=== PATIENT | male | born 1935 | race Caucasian/White ===

== ENCOUNTER 2024-01-28 08:29 | Outpatient (CLI) | payer MEDICARE, SELFPAY ==
[2024-01-28 09:15] LABS: Add Urine Microscopic? NO; Appearance Urine Clear (Clear); Bilirubin Urine Negative (Negative); Blood Urine Negative (Negative); Color Urine Yellow (Yellow); Glucose Urine UA 3+ mg/dL (Negative); Ketones Urine Negative (Negative); Leukocyte Esterase Ur Negative LEU/UL (Negative); Nitrate Urine Negative (Negative); Protein Urine Negative (Negative); Specific Grav Ur 1.024 (1.001-1.035); Urobilinogen Urine 0.2 mg/dL (<2.0); pH Urine 5.5 (5.0-9.0)
[2024-01-28 09:52] LABS: Hematocrit 37.5 % (42.0-52.0); Hemoglobin 11.7 g/dL (14.0-18.0); Mean Corpuscular HGB Conc 31.2 g/dl (32-36); Mean Corpuscular Hemoglobin 28.7 pg (26-34); Mean Corpuscular Volume 92.1 fl (80-100); Mean Platelet Volume 11.1 fl (7.4-10.4); Platelet Count Result 161 k/mm3 (150-375); Red Blood Count 4.07 M/mm3 (4.6-6.20); Red Cell Distribution Width 13.1 % (11.5-14.5); White Blood Count 7.9 K/mm3 (4.5-10.0)
[2024-01-28 10:03] LABS: Albumin Level 4.3 g/dL (3.5-5.1); Anion Gap 10 mmol/L (4-12); Blood Urea Nitrogen 32 mg/dL (9-20); Calcium 9.6 mg/dL (8.4-10.2); Carbon Dioxide 25 mmol/L (22-30); Chloride 105 mmol/L (98-107); Estimated Glomerular Filt Rate 41; Glucose 165 mg/dL (65-110); Magnesium 1.8 mg/dL (1.6-2.3); Potassium 4.4 mmol/L (3.4-5.0); Sodium 140 mmol/L (137-145)
[2024-01-28 10:30] LABS: MALB Creatinine Ratio 12.8 mg/g (0-30); Microalbumin Urine Random 8.6 mg/L (0-16.7)
[2024-01-28 10:38] LABS: Creatinine Urine 67.4 mg/dL; Total Protein Urine Random 13 mg/dL; Ur Ttl Prot Creatinine Ratio 0.19 mg/mg (0-0.20)
[2024-01-28 10:43] LABS: Vitamin D 25 Hydroxy 58.4 ng/mL
[2024-01-28 10:47] LABS: Parathyroid Intact 66.1 pg/mL (14.5-75.2)
[2024-01-28 11:20] LABS: Hemoglobin A1C 8.4 % (<5.7)
== END 2024-01-28 08:30 | disposition home or self-care (01) ==
LOC: ANHLAB 08:32
PROVIDERS: PCP Internal Medicine; Visit Provider Internal Medicine Nephrology
DX: I12.9 Hypertensive chronic kidney disease with stage 1 through stage 4 chronic kidney disease, or unspecified chronic kidney disease (principal); N18.32 Chronic kidney disease, stage 3b; E11.22 Type 2 diabetes mellitus with diabetic chronic kidney disease; I25.84 Coronary atherosclerosis due to calcified coronary lesion; I48.0 Paroxysmal atrial fibrillation; E78.00 Pure hypercholesterolemia, unspecified; K21.9 Gastro-esophageal reflux disease without esophagitis
CPT/HCPCS: 36415; 80069; 81003; 82043; 82306; 82570; 83036; 83735; 83970; 84156; 85027

== ENCOUNTER 2024-06-02 08:20 | Outpatient (CLI) | payer MEDICARE, SELFPAY ==
--- OUTSIDE RECORDS SUMMARY | 2024-06-02 08:34 | XMS_ITS | Continuity of Care Document ---
Author Organization [facility] Address [address] [facility] [address] [place] [address] Phone Care Team Providers Care Refrigeration Systems Installer Name Role Phone Og BONILLA MD, Alex Unavailable Unavailable Procedures Procedure Date AFTER CATARACT LASER SURGERY CATARACT SURG W/IOL, 1 STAGE CATARACT SURG W/IOL, 1 STAGE OFFICE/OUTPATIENT VISIT, [facility] DILATED EXAM RIGHT EYE DILATED EXAM LEFT EYE OPHTHALMIC BIOMETRY Advance Directives Directive Yes / No Effective Date File Name No Information Encounters Encounter Description Practice Location Reason(s) For Visit Diagnoses Date Provider Providers Copied on Encounter Ophthalmology [facility], [address], [place], [place], [id number], tel:[phone] [address] [place] [address] No Information 6 Og Johnson. [address], [address], [place], [place], [address] , [place]. tel:[phone] Referring Provider: Alex So, [address], [place], [address] . tel:[phone] Ophthalmology [facility], [address], [place], [place], [address], tel:[phone] [address] [place] [address] No Information 5 Og Johnson. [address], [address], [place], [place], [address] , [place]. tel:[phone] Referring Provider: Alex So, [address], [place], [address] . tel:[phone] [facility], [address] [place] [address], [id number], tel:[phone] [address] [facility] No Information 5 Og Johnson. [address], [address], [place], [place], [address] , . [phone] Referring Provider: Alex Foley MD P, [address], [place], [address] . tel:[phone] OFFICE/OUTPA TIENT VISIT, [facility], [address] [place] [address], [place], [place], [id number], tel:[phone] [facility] No Information 5 Og Johnson. [address], [place], [place], [address] , [place]. [phone] Referring Provider: Alex Foley MD P, [address], [place], [address] . tel:[phone] Family History Family Member Type Diagnosis Age At Onset No Information Payers Payer name Insurance type Covered republican ID Authoriza tion(s) Medicare Complete Advantage AARP CI [id number] Social History Type Description Quantity Date Captured [...]
--- OUTSIDE RECORDS SUMMARY | 2024-06-02 08:34 | XMS_ITS | Data Portability ---
Author Organization [facility] [employer], Main Office Address [address] [place] [address] Care Team Providers Care Property Utilization Manager Name Role Phone SAVANNA URRUTIA Primary Care Provider SAVANNA URRUTIA Referring Provider [phone] Assessment No assessment recorded. Plan of Treatment Reminders Order Date Submit Date Provider Last Modified By Organization Details Last Modified Time Details Appointments Any 15 2024 08:30A Franko Urrutia MD Not available Not available Not available Medicare Wellness 15 2024 10:15A Franko Urrutia MD Not available Not available Not available Lab vitamin B12, serum 2024 025 [email or web address] [facility], [address], [place], [address], 04/02/2024 09:14:35 TSH, serum or plasma 2024 025 [email or web address] [facility], [address], [place], [address], 04/02/2024 09:14:36 CBC w/ auto diff 2024 025 [email or web address] [facility], [address], [place], [address], 04/02/2024 09:14:36 vitamin B12 + folate, serum or blood 2024 025 BEAU [facility], [address], [place], [address], 03/26/2024 18:05:14 CMP, serum or plasma 2024 025 [email or web address] [facility], [address] , [place], [address], 04/02/2024 09:14:36 RPR (rapid plasma reagin), serum 2024 025 [email or web address] Not available 04/02/2024 09:14:36 glycohemo globin, total, blood 2023 024 [facility] (Lab), [address] [place], [address], 11/23/2023 07:17:06 BMP, serum or plasma 2023 024 [facility] (Lab), [address] [place], [address], 11/21/2023 19:59:05 Referral None recorded. Procedures None recorded. Surgeries None recorded. Imaging CT, brain, w/o contrast - Please call patient to schedule. 2024 025 [facility], [address], [place], [address], 03/25/2024 19:32:42 Medication Orders donepezil 5 mg tablet 2024 025 [facility] #[id number], [address], [place], [place], [id number], 03/24/2024 10:07:16 Farxiga 10 mg tablet 2023 024 [id number], [address], [place], [place], [id number], 12/12/2023 10:44:13 Patient TargetsNo targets recorded. Patient InstructionsNo instructions recorded. Reason for Referral None Reported. Results Created Date Observation Date Name Description Value Unit Range Abnormal Flag Note LastModifiedBy Organization Detail LastModifiedTime 11/21/19 24 11/21/2023 BASIC METAB OLIC PANEL sodium 137 mmol/ L 137-14 5 Not Available [facility] (Lab) [address] [place], [address], 11/21/2023 19:59:05 11/21/19 24 11/21/2023 BASIC METAB OLIC PANEL potassium 4.4 mmol/ L 3.5-5. 1 Not Available [facility] (Lab) [address] [place], [address], 11/21/2023 19:59:05 11/21/19 24 11/21/2023 BASIC METAB OLIC PANEL chloride 102 mmol/ L 98-107 Not Available [facility] (Lab) [address] [place], [address], 11/21/2023 19:59:05 11/21/19 24 11/21/2023 BASIC METAB OLIC PANEL carbon dioxide 25 mmol/ L 22-30 Not Available [facility] (Lab) [address] [place], [address], 11/21/2023 19:59:05 11/21/19 24 11/21/2023 BASIC METAB OLIC PANEL anion gap 14.4 mmol/ L 14-22 Not Available [facility] (Lab) [address] [place], [address], 11/21/2023 19:59:05 11/21/19 24 11/21/2023 BASIC METAB OLIC PANEL glucose 146 mg/dL 70-99 high Not Available [facility] (Lab) [address] [place], [address], 11/21/2023 19:59:05 11/21/19 24 11/21/2023 BASIC METAB OLIC PANEL BUN 22 mg/dL 8-19 high Not Available [facility] (Lab) [address] [place], [address], 11/21/2023 19:59:05 11/21/19 24 11/21/2023 BASIC METAB OLIC PANEL creatinine 1.45 mg/dL 0.66-1 .25 high Not Available [facility] (Lab) [address] [place], [address], 11/21/2023 19:59:05 11/21/19 24 11/21/2023 BASIC METAB OLIC PANEL GFR 46 Refer ence Range : [place] GFR Healt hy Adult : >60 mL/mi n/1.7 3 m2 Chron ic Kidne y Disea se: 15-60 mL/mi n/1.7 3 m2 Kidne y Failu re: <15/m L/min /1.73 m2 www.n iddk. [facility].g ov The MDRD study equat ion has not been valid ated in child lamar <18 years of age; pregn ant women ; the elder ly >85 years of age; or in some racia l or ethni c subgr oups, such as Hispa nics. Outsi de the valid ated jovanna eters , estim ated GFR is less accur ate, requi ring clini jaimie judgm ent on a case- by-ca se basis . Clini jaimie inter preta tion for other races and ages must be made by the clini jose carlos. The MDRD study equat ion has not been valid ated for the evalu ation of serum creat inine relat ed to nutri rex l statu s or medic ation usage . For perso ns <18 years of age, a pedia tric GFR calcu lator is avail able on the F websi te: https ://ww w.kid [place].o rg/pr ofess ional s/kdo qi/gf r_cal culat or Not Available [facility] (Lab) [address] [place], [address], 11/21/2023 19:59:05 11/21/19 24 11/21/2023 BASIC METAB OLIC PANEL calcium 9.0 mg/dL 8.4-10 .2 Not Available [facility] (Lab) [address] [place], [address], 11/21/2023 19:59:05 11/21/19 24 11/23/2023 HA1C, SEND- OUT TO [facility] RP hemoglobin A1C 7.7 % 4.8-5. 6 high . . Predi abete s: 5.7 - 6.4 Diabe rashel: >6.4 Glyce belle contr ol for adult s with diabe rashel: <7.0 Perfo rmed at: - [facility] r[facility] n [address], [place] [address] Lab Direc tor: Ramos mooney PhD, Phone : [phone] Not Available [facility] (Lab) [address] [place], [address], 11/23/2023 07:13:28 03/25/19 25 01/18/2024 CT, brain , w/o contr ast No observ ation record ed. [facility] [address], [place], [address], 03/25/2024 19:32:42 Result Notes None recorded. Problems Name Problem SNOMED Code Status Onset Date Resolution Date Notes Provider Name and Address Organization Details Recorded Time Cobalamin deficienc y 648239312 Active Not Available [facility] 4 04:45:43 Abdominal pain 50254376 Completed Savanna Urrutia MD [address], [address], [place], [address] , [facility] [employer] 3 11:14:02 Gastroeso phageal reflux disease 524914936 Active Not Available [facility] 4 04:45:43 Osteoarth ritis of hip 801426469 Active Not Available [facility] 4 04:45:43 Osteoarth ritis of knee 172034299 Active Not Available [facility] 4 04:45:43 Headache 07715955 Active 2016 Not Available [facility] 4 04:45:43 Gastroeso phageal reflux disease without esophagit is 469263502 Completed 202112/06/2021 Not Available [facility] 3 06:00:02 Adult health examinati on Active 2020 Not Available [facility] 4 04:45:43 Eruption 623662199 Completed 202112/06/2021 Not Available [facility] 3 06:00:03 Type 2 diabetes mellitus without complicat ion 497070965 Active 2021 Not Available [facility] 4 04:45:43 Vitamin D deficienc y 35761162 Active Not Available [facility] 4 04:45:43 Malignant neoplasm of skin 496728505 Active 2017 Not Available [facility] 4 04:45:43 Hypertens maricruz disorder 42005228 Active 2021 Not Available [facility] 4 04:45:43 Osteoarth ritis 841718620 Active Not Available [facility] 4 04:45:43 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 Not Available [facility] 4 04:45:43 Dysphagia 71667713 Active 2020 Not Available [facility] 4 04:45:43 Coronary atheroscl erosis 551729161 Active Not Available [facility] 4 04:45:43 Pain of bilateral knee regions 63389332838 4102 Completed 202112/06/2021 Not Available [facility] 3 06:00:04 Atrial fibrillat ion 03358334 Active 2017 Not Available [facility] 4 04:45:43 Sinus bradycard ia 17996929 Active 2020 Not Available [facility] 4 04:45:43 Cough 81680871 Completed 202112/06/2021 Not Available [facility] 3 06:00:04 Hyperlipi demia 16059967 Active Not Available [facility] 4 04:45:43 Essential hypertens ion 85305130 Active Not Available [facility] 4 04:45:43 Diabetes mellitus 33063523 Active Not Available [facility] 4 04:45:43 Vitamin deficienc y 38346003 Completed Not Available [facility] 3 06:00:05 Kidney disease 63387609 Active 2016 Not Available [facility] 4 04:45:43 Skin lesion 26141681 Completed 201608/09/2017 Not Available [facility] 3 06:00:06 Abdominal pain 15060395 Active 2022 Not Available [facility] 4 04:45:43 Syncope 374124350 Active 2023 Savanna Urrutia MD [address], [address], [place], [address] , [facility] 4 11:37:54 Dry skin dermatiti s 597566660 Active 2023 Savanna Urrutia MD [address], [address], [place], [address] , [facility] 4 11:38:17 Abnormal weight 63630316 Active 2023 NINO Hart null, [place] - [facility] 4 08:49:00 Sinusitis 56419477 Active 2023 Clari Cox MA null, [place] - [facility] 4 15:55:21 Symptomat ic sinus bradycard ia 947979534 Active 2023 Savanna Urrutia MD [address], [address], [place], [address] , [facility] 4 09:31:07 Memory impairmen t 177769565 Active 2023 Savanna Urrutia MD [address], [address], [place], [address] , [facility] 4 09:32:28 Dementia 08928218 Active 2024 Savanna Urrutia MD [address], [address], [place], [address] , [email or web address] 5 10:04:24 Sick sinus syndrome 26792358 Active 2024 Savanna Urrutia MD [address], [place], [address] , [email or web address] 5 10:21:02 Problem Notes None recorded. Procedures Surgical History Date Name Laterality Status Provider Name and Address Organization Details Recorded Time 08/08/19 24 Medicare Wellness CPT Code, subsequent completed Latha Ford RN [facility] 08/08/2023 10:43:52 08/05/19 23 Medicare Wellness CPT Code, subsequent completed Aliyah Monroe RN [facility] 08/04/2022 11:37:11 CABG completed Not Available [facility] 05/03/2022 05:53:40 Cholecystectomy completed Not Available [facility] 05/03/2022 05:53:40 Cardiac Stent Placement completed Not Available [facility] 05/03/2022 05:53:40 Imaging Results Imaging Date Name Status LastModified by Organiz ation Details LastModified Time 01/18/2024 CT, brain, w/o contrast completed [facility] [address] [facility] [facility] [address] [place] [address], [address], 03/25/2024 19:32:42 Procedure Notes None recorded. Medical Equipment None Reported. Allergies Allergen ID Allergen Name Allergen Category Reaction Reaction Severity Criticality Documentation Date Start Date Code Code System Note Provider Name and Address Organization Details Recorded Time 35537 metformin medicatio n Not available Not available Not available 05/03/2022 6809 RxNorm kidne y disea se Not Available [facility] 06:11:15 Medications Name Sig Start Date Stop Date Status Note LastModified by Organization Details LastModified Time losartan 50 mg tablet Take 1 tablet every day by oral route for 90 days. 11/30 completed Not Available Not Available Not Available metformin 500 mg tablet Take 2 tablets twice a day by oral route for 90 days. active Not Available Not Available No t Available carvedilo l 25 mg tablet TAKE 1 TABLET BY MOUTH TWICE DAILY 2024 active Not Available Not Available Not Avai lable carvedilo l 6.25 mg tablet active Not Available Not Available Not Available carvedilo l 12.5 mg tablet Take 1 tablet every day by oral route for 30 days. active Not Available Not Available No t Available donepezil 5 mg tablet Take 1 tablet every day by oral route. 2024 active Not Available Not Available Not Avai lable azithromy jeremi 250 mg tablet TAKE 2 TABLETS (500 MG) BY ORAL ROUTE ONCE DAILY FOR 1 DAY THEN 1 TABLET (250 MG) BY ORAL ROUTE ONCE DAILY FOR 4 DAYS 05/27 completed Not Available Not Available Not Available benzonata te 200 mg capsule TAKE 1 CAPSULE BY MOUTH THREE TIMES DAILY FOR 7 DAYS 08/04 completed Not Available Not Available Not Available glyburide 2.5 mg tablet Take 1 tablet twice a day by oral route. active Not Available Not Available No t Available cephalexi n 250 mg capsule TAKE ONE CAPSULE BY MOUTH THREE TIMES DAILY 05/27 completed Not Available Not Available Not Available glipizide ER 10 mg tablet, extended release 24 hr TAKE 1 TABLET BY MOUTH TWICE DAILY active Not Available Not Available No t Available fluoroura cil 5 % topical cream 08/04 completed Not Available Not Available Not Available glipizide ER 5 mg tablet, extended release 24 hr TAKE 1 AND 1/2 TABLETS TWICE DAILY 12/09 completed Not Available Not Available Not Available Accu-Chek Softclix Lancets TEST BLOOD SUGAR TWICE DAILY DIRECTED active Not Available Not Available No t Available clopidogr el 75 mg tablet TK 1 T PO QD 03/17 completed Not Available Not Available Not Available chlorthal idone 25 mg tablet 11/30 completed Not Available Not Available Not Available amlodipin e 5 mg tablet active Not Available Not Available Not Available aspirin 81 mg tablet,de layed release Take 1 tablet every day by oral route. 08/09 completed Not Available Not Available Not Available tramadol 50 mg tablet Take 1 tablet twice a day by oral route as needed. 2023 active Not Available Not Available Not Avai lable triamcino lone acetonide 0.1 % topical cream APPLY A THIN LAYER TO THE AFFECTED AREA(S) BY TOPICAL ROUTE 2 TIMES PER DAY 2023 active Not Available Not Available Not Avai lable simvastat in 40 mg tablet TAKE 1 TABLET BY MOUTH DAILY active Not Available Not Available No t Available oxycodone -acetamin ophen 5 mg-325 mg tablet 07/27 completed Not Available Not Available Not Available amitripty line 25 mg tablet Take 1 tablet every day by oral route at bedtime for 30 days. 08/12 completed Not Available Not Available Not Available magnesium oxide 400 mg (241.3 mg magnesium ) tablet active Not Available Not Available Not Available Kenalog 10 mg/mL suspensio n for injection In office injectio n administ ered by the provider 12/07 completed [facility]: [id number] 06-22 Not Available Not Available Not Available glipizide ER 2.5 mg tablet, extended release 24 hr TAKE ONE TABLET TWICE DAILY . 12/13 completed Not Available Not Available Not Available cephalexi n 500 mg capsule 04/05 completed Not Available Not Available Not Available pantopraz ole 40 mg tablet,de layed release TAKE 1 TABLET BY MOUTH DAILY active Not Available Not Available No t Available erythromy jeremi 5 mg/gram (0.5 %) eye ointment APPLY A THIN LAYER TO LOWER LID OF RIGHT EYE TWICE DAILY active Not Available Not Available No t Available cyanocoba judy (vit B-12) 1,000 mcg/mL injection solution Inject 1 mL every month by intramus cular route. 12/13 completed Internal note: [facility] #[id number] ternal note: [facility]# [id number] 25 Not Available Not Available Not Available ranitidin e 150 mg tablet TAKE ONE TABLET TWICE DAILY 03/16 completed Not Available Not Available Not Available desonide 0.05 % lotion active Not Available Not Available Not Available ranitidin e 150 mg capsule Take 1 capsule twice a day by oral route for 90 days. active Not Available Not Available No t Available mupirocin 2 % topical ointment active Not Available Not Available Not Available ergocalci ferol (vitamin D2) 1,250 mcg (50,000 unit) capsule TAKE 1 CAPSULE BY MOUTH 1 TIME A WEEK active Not Available Not Available No t Available losartan 100 mg tablet TAKE 1 TABLET BY MOUTH DAILY active Not Available Not Available No t Available calcitrio l 0.25 mcg capsule TAKE 1 CAPSULE BY MOUTH EVERY DAY active Not Available Not Available No t Available loratadin e 10 mg tablet Take 1 tablet every day by oral route as directed for 30 days. 05/11 /2021 completed Not Available Not Available Not Available neomycin 3.5 mg/g-poly myxin B 10,000 unit/g-de xameth 0.1 % eye oint APPLY A SMALL AMOUNT TO AFFECTED EYE AT BEDTIME active Not Available Not Available No t Available Vitamin D 50,000 unit capsule Take 1 capsule every week by oral route. 12/13 completed Not Available Not Available Not Available topiramat e 50 mg tablet Take 1 tablet twice a day by oral route for 30 days. active Not Available Not Available No t Available lidocaine (PF) 5 mg/mL (0.5 %) injection solution In office injectio n administ ered by the provider 12/07 completed Not Available Not Available Not Available ProAir HFA 90 mcg/actua tion aerosol inhaler Inhale 2 puffs every 4-6 hours by inhalati on route as directed for 30 days. 04/05 completed Not Available Not Available Not Available Januvia 50 mg tablet Take 1 tablet every day by oral route. 04/14 completed Not Available Not Available Not Available Januvia 100 mg tablet TAKE 1 TABLET BY MOUTH DAILY 04/14 completed Not Available Not Available Not Available Besivance 0.6 % eye drops,stone pension active Not Available Not Available Not Available Accu-Chek Softclix Lancing Device+La ncets kit TEST TWICE DAILY 09/10 completed Not Available Not Available Not Available magnesium 400 mg (as magnesium oxide) capsule Take 1 capsule twice a day by oral route. active Nepholog y Not Available Not Available Not Available Ilevro 0.3 % eye drops,stone pension active Not Available Not Available Not Available Lotemax 0.5 % eye gel drops active Not Available Not Available No t Available Eliquis 2.5 mg tablet TAKE 1 TABLET BY MOUTH TWICE DAILY active Not Available Not Available No t Available Farxiga 10 mg tablet TAKE 1 TABLET BY MOUTH EVERY DAY active Not Available Not Available No t Available Arnuity Ellipta 100 mcg/actua tion powder for inhalatio n Inhale 1 puff every day by inhalati on route as directed for 30 days. active Not Available Not Available No t Available Vitamin B12 1000u daily 2017 active Not Available Not Available Not Avai lable Accu-Chek Guide test strips TEST BLOOD SUGAR TWICE DAILY active Not Available Not Available No t Available Ozempic 0.25 mg or 0.5 mg (2 mg/1.5 mL) subcutane ous pen injector INJECT 0.25 MG UNDER THE SKIN EVERY WEEK 12/25 completed Not Available Not Available Not Available Accu-Chek Guide Me Glucose Meter USE TO TEST BLOOD SUGAR TWICE DAILY DIRECTED active Not Available Not Available No t Available Fluzone Quad (PF) 60 mcg (15 mcg x 4)/0.5 mL IM syringe active Not Available Not Available Not Available Fluad Quad (65yr up)(PF) 60 mcg (15 mcg x 4)/0.5mL IM syringe ADMINIST ER 0.5ML IN THE MUSCLE DIRECTED 01/26 completed Not Available Not Available Not Available Ozempic 1 mg/dose (4 mg/3 mL) subcutane ous pen injector Inject 1 mg every week by subcutan eous route. 12/11 completed Not Available Not Available Not Available Ozempic 0.25 mg or 0.5 mg (2 mg/3 mL) subcutane ous pen injector INJECT 0.5 MG UNDER THE SKIN EVERY WEEK 12/11 completed Not Available Not Available Not Available Vitals Date Recorded Body height Body mass index (BMI) Body weight Body temperature Heart rate Oxygen saturation Oxygen saturation in Arterial blood by Pulse oximetry Systolic blood pressure Diastolic blood pressure Provider Name and Address Organization Details Last Updated DateTime 4 165.1 cm 26 kg/m2 72605.4 1 g 97.1 [degF] 61 /min 95 % 95 % 124 mm[Hg] 76 mm[Hg] NINO Whitaker [place] - [facility] [employer] [facility] 4 08:51:15 Date Recorded Body weight Body mass index (BMI) Body height Body temperature Heart rate Oxygen saturation Oxygen saturation in Arterial blood by Pulse oximetry Systolic blood pressure Diastolic blood pressure Provider Name and Address Organization Details Last Updated DateTime 4 90931.2 2 g 30.1 kg/m2 152.4 cm 97.3 [degF] 50 /min 98 % 98 % 132 mm[Hg] 68 mm[Hg] Marcelina brown [place] [employer] [email or web address] 4 12:50:06 Date Recorded Body height Body mass index (BMI) Body weight Body temperature Heart rate Respiratory rate Oxygen saturation Oxygen saturation in Arterial blood by Pulse oximetry Systolic blood pressure Diastolic blood pressure Provider Name and Address Organization Details Last Updated DateTime 4 152.4 cm 28.5 kg/m2 49856.4 9 g 97.2 [degF] 65 /min 16 /min 96 % 96 % 160 mm[Hg] 72 mm[Hg] Clari Cox MA [facility] [employer] [facility] 4 09:05:58 Date Recorded Body height Body mass index (BMI) Body weight Body temperature Heart rate Oxygen saturation Oxygen saturation in Arterial blood by Pulse oximetry Systolic blood pressure Diastolic blood pressure Provider Name and Address Organization Details Last Updated DateTime 5 152.4 cm 29.7 kg/m2 72634.0 4 g 97.4 [degF] 65 /min 98 % 98 % 122 mm[Hg] 58 mm[Hg] Marcelina brown [facility] [email or web address] [facility] 5 09:41:19 Date Recorded Body weight Body mass index (BMI) Body height Body temperature Heart rate Oxygen saturation Oxygen saturation in Arterial blood by Pulse oximetry Systolic blood pressure Diastolic blood pressure Provider Name and Address Organization Details Last Updated DateTime 5 53668.4 5 g 25.9 kg/m2 162.56 cm 97.1 [degF] 72 /min 96 % 96 % 126 mm[Hg] 60 mm[Hg] Marcelina brown [email or web address] 5 09:56:20 Social History Question Answer Notes LastModified by Organizat ion Details LastModified Time Tobacco Smoking Status Never Smoker Not Available [facility] 05/03/2022 05:52:54 Do You Have An Advance Directive? Yes [id number] Information not available 05/03/2022 What Is Your Level Of Alcohol Consumption? None [id number] Information not available 05/03/2022 Are You Blind Or Do You Have Difficulty Seeing? No [id number] Information not available 05/03/2022 What Is Your Level Of Caffeine Consumption? Moderate [id number] [id number] Information not available 05/03/2022 How Much Tobacco Do You Chew? None [id number] Information not available 05/03/2022 Are You Deaf Or Do You Have Serious Difficulty Hearing? Yes Tinnitus [id number] Information not available 05/03/2022 What Type Of Diet Are You Following? REGULAR [id number] [id number] Information not available 05/03/2022 Which Illicit Or Recreational Drugs Have You Used? None [id number] [id number] Information not available 05/03/2022 What Is Your Occupation? Retired [id number].52975 [id number] Information not available 05/03/2022 Have There Been Any Changes To Your Family Or Social Situation? No [email or web address] Information not available 08/04/2022 What Is The Fluoride Status Of Your Home? Fluoridated [id number].39933 [id number] Information not available 05/03/2022 Are There Any Guns Present In Your Home? No [email or web address] Information not available 08/08/2023 Where Do You Live? [place]House [id number].[id number] Information not available 05/03/2022 Presence Of Domestic Violence No [email or web address] Information not available 08/04/2022 Guns Present In The Home? No Information not available 08/08/2023 Are You Able To Care For Yourself? Yes [email or web address] Information not available 08/04/2022 Are You Blind Or Do Yo Have Difficulty Seeing? No Glasses Information not available 08/04/2022 Are You Deaf Or Do You Have Serious Difficulty Hearing? Yes Tinnitus Information not available 08/04/2022 General Stress Level? Low [email or web address] Information not available 08/04/2022 Live Alone Of With Others? With Others [email or web address] Information not available 08/04/2022 What Was The Date Of Your Most Recent Tobacco Screening? 08/08/2023 [email or web address] Information not available 08/08/2023 Do You Have Any Pets? No [email or web address] Information not available 08/08/2023 What Is Your Relationship Status? [id number] Information not available 05/03/2022 Do You Use Your Seat Belt Or Car Seat Routinely? Yes MIGRATION.[id number] Information not available 05/03/2022 Do You Have Smoke And Carbon Monoxide Detectors In Your Home? Yes MIGRATION.11751 [id number] Information not available 05/03/2022 Are You Passively Exposed To Smoke? No [email or web address] Information not available 08/08/2023 Are There Any Smokers In Your House? No [email or web address] Information not available 08/08/2023 Do You Use Sunscreen Routinely? No MIGRATION.[id number] Information not available 05/03/2022 Sex: Male Functional Status Question Answer Note LastModified by Organizat ion Details LastModified Time Do you have difficulty walking or climbing stairs? Yes uses a cane [email or web address] Information not available 08/08/2023 Do you have transportation difficulties? No MIGRATION.[id number] Information not available 05/03/2022 Are you able to walk? YESASSIST MIGRATION.781889 9901 Information not available 05/03/2022 Do you have difficulty doing errands alone? No MIGRATION.[id number] Information not available 05/03/2022 Are you able to care for yourself? Yes MIGRATION.243560 7532 Information not available 05/03/2022 Do you have difficulty dressing or bathing? No MIGRATION.805425 0662 Information not available 05/03/2022 What is your exercise level? None MIGRATION.186626 0297 Information not available 05/03/2022 Mental Status Question Answer Note LastModified by Organizat ion Details LastModified Time Do you have difficulty concentrating, remembering or making decisions? No MIGRATION.[id number] Information not available 05/03/2022 Family History Relationship Description Onset Age of this Age Resolved Age Notes LastModified by Organization Details LastModified Time Father Pulmonary emphysema 72 [id number] Not available 05/03/2022 05:53:40 Mother Hypertensive disorder 82 [id number] Not available 05/03/2022 05:53:40 Mother Carcinoma in situ of skin MIGRATION.743 [id number] Not available 05/03/2022 05:53:41 Medical History Condition Response BLINDNESS N KIDNEY STONES N MRSA N CARPAL TUNNEL SYNDROME N LUNG DISEASE/DISORDER N HISTORY OF DRUG ABUSE N RADIATION / CHEMOTHERAPY N COPD N SPORTS INJURY N ANKLE PAIN N BLOOD DISEASES N SCHIZOPHRENIA N SHINGLES N BOWEL PROBLEMS N SHOULDER PAIN N DEPRESSION (INCLUDING POST ) N STROKE/TIA N KNEE PAIN N ULCERS N BENIGN PROSTATIC HYPERPLASIA N OBESITY N GERD/NAUSEA N ANEURYSM N URINARY/BLADDER/KIDNEY PROBLEMS N CORONARY ARTERY DISEASE (CAD) N ADDICTION CONCERNS N USE OF BLOOD THINNERS Y SKIN PROBLEMS Y EMPHYSEMA N MUSCLE,JOINT OR BONE PROBLEMS N DVT N STOMACH ULCERS N BLOOD CLOTS N USE OF NSAIDS N CONCUSSION OR SPINAL TRAUMA N NEUROPATHY N AIDS/HIV N FRACTURES N ELBOW PAIN N HYPERTENSION Y TOURETTE'S N ANXIETY DISORDER N Metal allergy N BLOOD TRANSFUSION N ANEMIA/BLOOD DISORDER N BIPOLAR DISORDER N BRONCHITIS N OSTEOARTHRITIS N TUBERCULOSIS N FOOT PROBLEM N HEART VALVE DISORDERS N ALLERGIES/HAYFEVER N SOFT TISSUE INJURY N INFECTIOUS DISEASE N HEART ARRHYTHMIA Y INSOMNIA N RHEUMATOID ARTHRITIS N HIGH CHOLESTEROL / HYPERLIPIDEMIA N EDEMA N CHRONIC PAIN SYNDROME N CAROTID BLOCKAGE N BACK / NECK PROBLEMS N HAVE YOU BEEN HOSPITALIZED OR SEEN IN [facility] ER IN THE PAST YEAR ? N BURSITIS N HERNIATED DISC N DIALYSIS N FIBROMYALGIA N OSTEOPOROSIS N ARTHRITIS Y NO SIGNIFICANT PAST MEDICAL HISTORY N PERIPHERAL NEUROPATHY N DIABETES, TYPE Y HEARTBURN / REFLUX N HEPATITIS / LIVER DISEASE N GOUT N SLEEP DISORDER N ALZHEIMER'S DISEASE N HERPES N SEIZURES/EPILEPSY N HEADACHES/MIGRAINES N VASCULAR DISEASE N HIP PAIN N Blood Disorder N DIZZINESS N HEAD TRAUMA OR INJURY N HEART DISEASE/HEART PROBLEMS N MULTIPLE SCLEROSIS N CARDIAC ARRHYTHMIA N CANCER: SPECIFY N ANESTHESIA COMPLICATIONS N ATRIAL FIBRILLATION N AUTOIMMUNE DISEASE N Immunizations Vaccine Type Date Status Note Provider Nam e and Address Organization Details Recorded Time Influenza, high-dose, quadrivalent, PF 3 completed Savanna Urrutia MD [address] [place] [address], [id number], [facility] [employer] 12/04/2022 11:12:10 COVID-19, mRNA, LNP-S, PF, 30 mcg/0.3 mL dose 1 completed Not Available [facility] 03/24/2023 04:45:44 SARS-COV-2 (COVID-19) vaccine, UNSPECIFIED 1 completed Not Available [facility] 03/24/2023 04:45:44 SARS-COV-2 (COVID-19) vaccine, UNSPECIFIED 1 completed Not Available [facility] 03/24/2023 04:45:44 Influenza, split virus, quadrivalent, preservative 0 completed Not Available [facility] 03/24/2023 04:45:44 Influenza, split virus, quadrivalent, preservative 9 completed Not Available [facility] 03/24/2023 04:45:44 Influenza, split virus, quadrivalent, preservative 9 completed Not Available [facility] 03/24/2023 04:45:44 Influenza, high-dose, quadrivalent, PF 2 completed Not Available [facility] 03/24/2023 04:45:44 Influenza, high-dose, trivalent, PF 8 completed Not Available [facility] 03/24/2023 04:45:44 Influenza, split virus, quadrivalent, PF 7 completed Not Available [facility] 03/24/2023 04:45:44 Pneumococcal conjugate PCV 13 6 completed Not Available [facility] 03/24/2023 04:45:44 Influenza, split virus, quadrivalent, PF 6 completed Not Available [facility] 03/24/2023 04:45:44 Influenza, high-dose, trivalent, PF 4 completed Savanna Urrutia MD [address] [place] [address], [place], [address], [facility] 12/12/2023 14:26:36 Past Encounters Encounter ID Performer Location Encounter Start Date Encounter Closed Date Diagnosis/Indication Diagnosis SNOMED-CT Code Diagnosis ICD10 Code Diagnosis Note [id number] [facility] [address] [facility] [place] [address] 07/13/2020 00:00:00 07/13/2020 10:59:47 [id number] [facility] [address] [address] 11/16/2020 00:00:00 11/16/2020 10:39:37 [id number] [facility] Med [facility] [address] [place] [address] 04/05/2021 00:00:00 04/05/2021 11:38:26 [id number] [facility] [address] [place] [address] 08/04/2021 00:00:00 08/04/2021 11:29:52 [id number] [facility] [place] [address] [place] [address] 09/08/2021 00:00:00 09/08/2021 11:17:49 [id number] [facility] [address] [address] 12/07/2021 00:00:00 12/07/2021 12:41:36 [id number] [facility] [address] [address] 04/06/2022 00:00:00 04/06/2022 11:34:00 [id number] Savanna Urrutia MD [facility] [address] [address] 08/04/2022 10:29:31 08/04/2022 11:22:41 Essential hypertension 82791452 I10 under control Hyperlipidemia 28975718 E78.5 stable Diabetes mellitus 322239 09 E11.9 under control Gastroesop hageal reflux disease 034041972 K21.9 stable Coronary atherosclerosis 468096098 I25.10 no symptoms Cobalamin deficiency 190 281057 E53.8 no meds needed Malignant neoplasm of skin 915703727 C44.90 s/p RT Dysphagia 61527443 R13.1 0 no more symptoms Sinus bradycardia 724098 05 R00.1 improved Atrial fibrillation 4943 6004 I48.91 in sinus, on Eliquis Osteoarthritis 884452858 M19.90 stable Adult heal th examination 295261655 Z00.00 Colonoscop y- 11/01/2012 PSA- 07/27/2016 , no more neededPrev west- 01/17/2016 , had pneumovaxF BHARGAVI- OV ID- 04/30/20, 05/22/20 booster 12/16/2020 Abdominal pain 65167993 R10.9 mild, watch diet, ER if pain gets worse Screening for disorder 613740808 Z13.9 [id number] Savanna Urrutia MD [facility] Internal [address] [place] [address] 10/25/2022 14:46:17 10/25/2022 15:10:46 Abdominal pain 37945156 R10.9 getting worse, to go to ER [id number] Savanna Urrutia MD [facility] Internal Med [address] [facility] [place] [address] 12/04/2022 10:27:03 12/04/2022 11:29:40 Essential hypertension 73253796 I10 under control Hyperlipidemia 47681162 E78.5 stable Diabetes mellitus 723768 09 E11.9 not under control, may need insulinnee d to hold ozempic due to side effects Gastroesop hageal reflux disease 791425742 K21.9 stable Coronary atherosclerosis 669655285 I25.10 no symptoms Cobalamin deficiency 190 916568 E53.8 no meds needed Malignant neoplasm of skin 567682890 C44.90 s/p RT Dysphagia 11723119 R13.1 0 no more symptoms Sinus bradycardia 751807 05 R00.1 improved Atrial fibrillation 4943 6004 I48.91 in sinus, on Eliquis Osteoarthritis 476886468 M19.90 add tramadol prn Adult heal th examination 624669006 Z00.00 Colonoscop y- 11/01/2012 PSA- 07/27/2016 , no more neededPrev west- 01/17/2016 , had pneumovaxF BHARGAVI- OV ID- 04/30/20, 05/22/20 booster 12/16/2020 Administra tion of influenza vaccine 71004170 Z23 Abdominal pain 03356286 R10.9 stop ozempic for 2 weeks and call me [id number] Savanna Urrutia MD [facility] Internal Med [address] [facility] [place] [address] 12/25/2022 10:12:44 12/25/2022 11:07:07 Diabetes mellitus 87539681 E11.9 getting better Kidney disease 18773972 N08 wants to change nephrology Adult heal th examination 501770579 Z00.00 Z13.220 Colonoscop y- 11/01/2012 PSA- 07/27/2016 , no more neededPrev - 01/17/2016 , had pneumovaxF BHARGAVI- 3COV ID- 04/30/20, 05/22/20 booster 12/16/2020 Depression screening 171 787489 Z13.31 [id number] Savanna Urrutia MD [facility] Internal Med [address] [place] [address] 04/06/2023 10:23:23 04/06/2023 11:56:29 Diabetes mellitus 20428768 E11.9 labs, advise do watch diet Kidney disease 39658449 N08 seeing nephrology Adult heal th examination 627657117 Z00.00 Z13.220 Colonoscop y- 11/01/2012 PSA- 07/27/2016 , no more neededPrev - 01/17/2016 , had pneumovaxF BHARGAVI- OV ID- 04/30/20, 05/22/20 booster 12/16/2020 Essential hypertension 94656033 I10 under control Hyperlipidemia 31522274 E78.5 stable Gastroesop hageal reflux disease 173404940 K21.9 stable Coronary atherosclerosis 604753939 I25.10 no symptoms Cobalamin deficiency 190 096314 E53.8 no meds needed Malignant neoplasm of skin 646341962 C44.90 s/p RT Dysphagia 61305027 R13.1 0 no more symptoms Sinus bradycardia 292299 05 R00.1 improved Atrial fibrillation 4943 6004 I48.91 in sinus, on Eliquis Osteoarthritis 714185490 M19.90 tramadol prn Syncope 539283720 R55 seen cardiology Dry skin dermatitis 2600 68985 L85.3 [id number] Savanna Urrutia MD [facility] Internal [address] [place] [address] 08/08/2023 09:34:14 08/08/2023 10:38:44 Diabetes mellitus 92218616 E11.9 not under control, advised to watch diet, ^ ozempic 1 mg Kidney disease 30401089 N08 stable GFR Adult heal th examination 812948160 Z00.00 Z13.220 Colonoscop y- 11/01/2012 PSA- 07/27/2016 , no more neededPrev west- 01/17/2016 , had pneumovaxF BHARGAVI- OV ID- 04/30/20, 05/22/20 booster 12/16/2020 Essential hypertension 19356116 I10 under control Hyperlipidemia 00864179 E78.5 stable Gastroesop hageal reflux disease 902943107 K21.9 stable Coronary atherosclerosis 544211778 I25.10 no symptoms Cobalamin deficiency 190 600637 E53.8 no meds needed Malignant neoplasm of skin 889145886 C44.90 s/p RT Dysphagia 71549335 R13.1 0 no more symptoms Sinus bradycardia 807950 05 R00.1 improved Atrial fibrillation 4943 6004 I48.91 in sinus, on Eliquis Osteoarthritis 166645035 M19.90 tramadol prn Syncope 953287691 R55 seen cardiology Screening for disorder 644060829 Z13.9 [id number] Savanna Urrutia MD [facility] Internal Med [facility] [address] [facility] [place] [address] 11/21/2023 08:43:24 11/21/2023 09:22:41 Diabetes mellitus 26615543 E11.9 STOP ozempic , watch diet [id number] Savanna Urrutia MD [facility] Internal Med [address] [facility] [place] [address] 12/12/2023 09:48:50 12/12/2023 11:11:01 Diabetes mellitus 07383566 E11.9 stop januvia, start [facility] Kidney disease 52977730 N08 GFR getting better, start [facility] Adult [facility] th examination 176717472 Z00.00 Z13.220 Colonoscop y- 11/01/2012 PSA- 07/27/2016 , no more [facility]- 01/17/2016 , had pneumovaxF BHARGAVI- 12/12/23CO VID- 04/30/20, 05/22/20 booster 12/16/2020 Essential hypertension 88476783 I10 under control Hyperlipidemia 04623063 E78.5 stable Gastroesop hageal reflux disease 404462481 K21.9 stable Coronary atherosclerosis 867325142 I25.10 no symptoms Cobalamin deficiency 190 766943 E53.8 no meds needed Malignant neoplasm of skin 632314872 C44.90 s/p RT Dysphagia 21727589 R13.1 0 no more symptoms Sinus bradycardia 362479 05 R00.1 improved Atrial fibrillation 4943 6004 I48.91 in sinus, on Eliquis Osteoarthritis 178477716 M19.90 tramadol prn Administra tion of influenza vaccine 00603721 Z23 [id number] Savanna Urrutia MD [facility] Internal Med [facility] [address] [facility] [place] [address] 02/14/2024 08:41:52 02/14/2024 09:18:31 Syncope 604027586 R55 DUE TO BRADYCARDI A, HAS IMPROVED Symptomati c sinus bradycardia 463191368 R00.1 s/p pace maker Diabetes mellitus 167636 09 E11.9 farxiga was added, some improvemen t with accu checks, advise dto watch diet Memory impairment 206523 006 R41.3 needs moer evaluation with MME [id number] Savanna Urrutia MD [facility] Internal Med [facility] [address] [facility] [place] [address] 03/24/2024 09:31:24 03/24/2024 10:24:45 Memory impairment 193517042 R41.3 start meds [id number] Savanna Urrutia MD [facility] Internal Med [address] [facility] [place] [address] 04/14/2024 09:50:18 04/14/2024 10:31:57 Kidney disease 40412188 N08 on [facility] Adult [facility] th examination 257660863 Z00.00 Z13.220 Colonoscop y- 11/01/2012 PSA- 07/27/2016 , no more neededPrev west- 01/17/2016 , had pneumovaxF BHARGAVI- 12/12/23CO VID- 04/30/20, 05/22/20 booster 12/16/2020 Essential hypertension 68943165 I10 under control Hyperlipidemia 52946525 E78.5 stable Gastroesop hageal reflux disease 264492424 K21.9 stable Coronary atherosclerosis 358382429 I25.10 no symptoms Cobalamin deficiency 190 767046 E53.8 no meds needed Malignant neoplasm of skin 603086190 C44.90 s/p RT Dysphagia 25662531 R13.1 0 no more symptoms Sinus bradycardia 561548 05 R00.1 improved Atrial fibrillation 4943 6004 I48.91 in sinus, on Eliquis Osteoarthritis 046854353 M19.90 tramadol prn Diabetes mellitus 783460 09 E11.9 advised to watch diet Memory impairment 053688 006 R41.3 unchanged, DOES NOT WANT MEDS Sick sinus syndrome 3608 3008 I49.5 has a pace maker Health Concerns Section Related Observation LastModified by Organization Detai ls LastModified Time None Recorded Concern Status LastModified by Organization Details LastModified Time None Recorded Advance Directives Directive Y: Payers Encounter Date Sequence Insurance Name Policy Number Policy Tena Covered Member ID Tena Member ID Guarantor Name 11/21/2023 1 [facility] (MEDICARE REPLACEMENT/A DVANTAGE - HMO) [id number] Molina R Marty [id number] Molina R Marty 12/12/2023 1 [facility] (MEDICARE REPLACEMENT/A DVANTAGE - HMO) [id number] Molina R Marty [id number] Molina R Marty 02/14/2024 1 [facility] (MEDICARE REPLACEMENT/A DVANTAGE - HMO) [id number] Molina R Marty [id number] Molina R Marty 03/24/2024 1 [facility] (MEDICARE REPLACEMENT/A DVANTAGE - HMO) [id number] Molina R Marty [id number] Molina R Marty 04/14/2024 1 [facility] (MEDICARE REPLACEMENT/A DVANTAGE - HMO) [id number] Molina R Marty [id number] Molina R Marty Notes Date Note Type Note Provider Name and Address Organization Details Recorded Time 11/21/2023 text/html Pt is here today for abnormal weight loss.He has lost 8 lbs since last OV in August. Complains he has lost his appetite, states that lara he does eat his stomach hurts real bad. Stomach problems has been going on for years but recently has got worse.He can't tolerate ozempic due tp abd pain, did not go upto 1 mg, wants yo stopwatching diethas stopped eating sweetsbm is nl Savanna Urrutia MD [address], [place], [address], [employer] 11/21/2023 09:19:53 12/12/2023 text/html He is here for f /u taking meds daily. no side effectsPT IS FASTING Arthritis has been flaring up in his knees and back, has been taking Tylenol nad Tramadol (needs a refill) Coronary artery disease status post CABG in 2019 and multiple stents, cardiology dr lauren, no symptoms A Fib diagnosed in 04/22, now in sinus , NO symptoms,cardiology Dr laurenMedjude- Eliquis 2.5 mg BID Hypertension-under controlMeds- Losartan 100 mg daily and Carvedilol 25 mg BID GERD- Better with medsMeds- Pantoprazole 40 mg daily Hyperlipidemia- under control with medications. labs dueMeds- Simvastatin 40 mg daily DM - A1c was 7.7 (11/21/23)accu checks are 90-160, diet was not good around holidaysNo Hypoglycemia,last eye exam - 2023 [facility]No numbness or tinglingMed- Glipizide 10 mg BID and Januvia 100 mg daily, WILL BE CHANGED TO FARXIGAHAD TO STOP OZEMPIC DUE TO STOMACH PROBLEMS Renal disease, seeing nephrology, dr Holland, GFR - WAS 35 , now 48Meds- Vitamin D 50,000 u every other week, Calcitriol 0.25 mg daily, Magnesium 400mg BID Vit B12 def- takes the oral otc. l Dysphagia- had EGD in the past, cxr was nl , had swallow evaluation, no more symptoms H/o skin cancer, seeing dr olivas, recently had removed from right earHad radiation therapy Osteoarthritis- knees, hips, back, knees are the worst, OTC Tylenol not helpingHas seen Ortho, Had shots in his knees, Took Therapy in the past, using cane, takes otc Savanna Urrutia MD [address], [address], [place], [address], [employer] 12/12/2023 14:26:45 02/14/2024 text/html He is here for f /u after hospitalwas admitted for fatigue for months, then had syncope, found to have marked bradycardia requiring pace maker and doing well since thendenies sob or cpappetite is better noted that his memory and behaviors has changed accu checks are above 160, watching diet Savanna Urrutia MD [address], [place], [address], [employer] 02/14/2024 09:34:27 03/24/2024 text/html Pt is here today with his with concerns of memory issuesForgets names of family membersDrives without problems.no significant behaviour problemMME- Savanna Urrutia MD [address], [place], [address], [employer] 03/24/2024 10:09:03 04/14/2024 text/html He is here for f /u taking meds daily. no side effectsPT IS NOT FASTING ( [facility] ) Coronary artery disease status post CABG in 2019 and multiple stents, cardiology dr lauren, no symptoms A Fib diagnosed in 04/22, now in sinus ,cardiology Dr laurenMeds- Eliquis 2.5 mg BID Sick sinus syndrome, s/p pace maker Hypertension-under controlMeds- Losartan 100 mg daily and Carvedilol 25 mg BID GERD- Better with medsMeds- Pantoprazole 40 mg daily Hyperlipidemia- under control with medications. labs dueMeds- Simvastatin 40 mg daily DM - A1c was 7.7 (11/21/23)Accu checks are 90-190, diet was not good around holidaysNo Hypoglycemia,last eye exam - 2023 [employer] VisionNo numbness or tinglingMed- Glipizide 10 mg BID, Farxiga 10mg dailyHAD TO STOP OZEMPIC DUE TO STOMACH PROBLEMS Renal disease, seeing nephrology, dr Holland, GFR - WAS 33 , now 38Meds- Vitamin D 50,000 u every other week, Calcitriol 0.25 mg daily, Magnesium 400mg BID Vit B12 def- takes the oral otc. l Dysphagia- had EGD in the past, cxr was nl , had swallow evaluation, no more symptoms H/o skin cancer, seeing dr olivas, recently had removed from right earHad radiation therapy Osteoarthritis- knees, hips, back, knees are the worst, OTC TylenolHas seen Ortho, Had shots in his knees, Took Therapy in the past, using cane, takes otc Memory loss- concerns of memory issuesForgets names of family membersDrives without problems.no significant behaviour problemMME- He was started on donepazil, did not last picker meds due to otential side effects, DOES NOT WANT MEDS Savanna Urrutia MD [address] [facility], [facility] [address], [place], [address], [place] [facility] [employer] 04/14/2024 10:26:24
--- OUTSIDE RECORDS SUMMARY | 2024-06-02 08:35 | XMS_ITS | CONTINUITY OF CARE DOCUMENT ---
Author Name ernesto orozco Address Unknown Organization [facility] Address [address] [address] [place] [address] Phone [phone] Care Team Providers Care Mechanical Lead Name Role Phone Rojelio BONILLA, Nickie Unavailable [phone] Sergio Dow MD Unavailable [phone] Sergio oDw MD Unavailable [phone] PROBLEMS Condition Status Date Provider Notes S/P Dual chamb PCM - Biotronik ( MRI Safe) active Zhanna Monroe CAD--CABG-01/1997 EWING WITH RADIAL T, OPEN 2012 and17 active Nickie Serrato MD CAD-NSTEMI w/ KRISTAL x2 to dRCA, 08/2019 active Nickie Serrato MD STENT -12/08 VISION RCA TO GIVE COMP REVASCULAR, active - Thien Hardy MD HTN--echo ef 55%, mod MR, 02/2020 active Serg Mobley Hypercholesterolemia active Kristan helm AV BLOCK 1ST DEGREE:WOULD AVOID BETA RYAN completed - Nickie Serrato MD DIABETES MELLITUS active Thien Hardy MD Bradycardia active Nickie Serrato MD MITRAL REGURGITATION, MILD;02/09 WITH NML LV completed - Thien Hardy MD DIASTOLIC DYSFUNCTION; completed 2 - Nickie Serrato MD TRICUSPID REGURGITATION, MILD;02/10 completed - Thien Hardy MD MITRAL REGURGITATION;MOD 13 completed 2009 - Thien Hardy MD AORTIC REGURGITATION, MILD;13 WITH NML EF completed - Thien Hardy MD COUGH DUE TO IRRITATION OF ESOPHAGUS completed - Nickie Serrato MD (History of) VENOUS INSUFFICIENCY;LEFT LEG;WANTS MEDICAL RX completed - Nickie Serrato MD GERD active Nickie Serrato MD STENT - XIENCE;RCA AND CX in 13, open in 17 completed - Nickie Serrato MD (Status post) IRON DEFICIENCY completed - Nickie Serrato MD RBBB; completed - Nickie Serrato MD present since 14 Vitamin D deficiency completed - Nickie Serrato MD Vitamin B12 deficiency completed 4 - Nickie Serrato MD Gallstones completed - Thien Hardy MD Aortic valve disease completed - Nickie Serrato MD Renal disease, chronic, mild, follows with Dr Holland active Nickie Serrato MD Afib on Eliquis active Nickie Serrato MD Mitral regurgitation, moderate active Nickie Serrato MD Venous insufficiency active Nickie Serrato MD Cough active Nickie Serrato MD Neck pain active Nickie Serrato MD Confusion active Nickie Serrato MD Dizziness active Nickie Serrato MD TIA active Nickie Serrato MD Cardiology examination active Sven Posey MD Sick sinus syndrome active Sven Posey MD ENCOUNTERS Date Type Provider Location Encounter Diag nosis - In-person encounter Office Visit Nickie Serrato MD [facility] - In-person encounter Office Visit Sven Posey MD [facility] Cardiology examinationSick sinus syndrome - In-person encounter Office Visit Nickie Serrato MD [facility] - In-person encounter Office Visit Ncikie Serrato MD [facility] - In-person encounter Office Visit Nickie Serrato MD [facility] Renal disease, chronic, mild, follows with Dr Peters painConfusionDizzinessTIA - In-person encounter Office Visit Nickie Serrato MD [facility] - In-person encounter Office Visit Nickie Serrato MD [facility] - In-person encounter Office Visit Nickie Serrato MD [facility] CAD--CABG-01/1997 EWING WITH RADIAL T, OPEN 2012 [id number] INSUFFICIENCY;LEFT LEG;WANTS MEDICAL RXVenous insufficiencyCough - In-person encounter Office Visit Nickie Serrato MD [facility] - In-person encounter Office Visit Nickie Serrato MD [facility] HTN--echo ef 55%, mod MR, 02/2020 - In-person encounter Office Visit Nickie Serrato MD [facility] GERDVitamin D deficiencyVitamin B12 deficiencyRenal disease, chronic, mild, follows with Dr Alejandro on Eliquis - In-person encounter Office Visit Nickie Serrato MD [facility] Aortic valve diseaseMitral regurgitation, moderate - In-person encounter Office Visit Nickie Serrato MD [facility] CAD-NSTEMI w/ KRISTAL x2 to dRCA, 08/2019DIASTOLIC DYSFUNCTION;STENT - XIENCE;RCA AND CX in 13, open in 17IRON DEFICIENCYRBBB; - In-person encounter Office Visit Nickie Serrato MD [facility] - In-person encounter Office Visit Nickie Serrato MD [facility] AV BLOCK 1ST DEGREE:WOULD AVOID BETA BLOCKERCOUGH DUE TO IRRITATION OF ESOPHAGUS - In-person encounter Office Visit Nickie Serrato MD [facility] - In-person encounter Office Visit Nickie Serrato MD [facility] - In-person encounter Office Visit Nickie Serrato MD [facility] Afib on Eliquis - In-person encounter Office Visit Thien Hardy MD [facility] CAD--CABG-01/1997 EWING WITH RADIAL T, OPEN 2012 [id number] disease, chronic, mild, follows with Dr Holland - In-person encounter Office Visit Thien Hardy MD [facility] - In-person encounter Office Visit Thien Hardy MD [facility] - In-person encounter Office Visit Thien Hardy MD [facility] HypercholesterolemiaIRON DEFICIENCY - In-person encounter Office Visit Thien Hardy MD [facility] HTN--echo ef 55%, mod MR, 02/2020 - In-person encounter Office Visit Thien Hardy MD [facility] IRON DEFICIENCYRBBB; - In-person encounter Office Visit Thien Hardy MD [facility] IRON DEFICIENCY - In-person encounter Office Visit Thien Hardy MD [facility] CAD--CABG-01/1997 EWING WITH RADIAL T, OPEN 2012 [id number] -12/08 VISION RCA TO GIVE COMP REVASCULAR,HTN--echo ef 55%, mod MR, 02/2020MITRAL REGURGITATION;MOD 13AORTIC REGURGITATION, MILD;13 WITH NML EFSTENT - XIENCE;RCA AND CX in 13, open in 17 - In-person encounter Office Visit Thien Hardy MD [facility] BradycardiaDIASTOLIC DYSFUNCTION;STENT - XIENCE;RCA AND CX in 13, open in 17 - In-person encounter Office Visit Thien Hardy MD [facility] HTN--echo ef 55%, mod MR, 02/2020HypercholesterolemiaDIA STOLIC DYSFUNCTION;TRICUSPID REGURGITATION, MILD;02/10MITRAL REGURGITATION;MOD 13GERDSTENT - XIENCE;RCA AND CX in 13, open in 17 - In-person encounter Office Visit Thien Hardy MD [facility] HTN--echo ef 55%, mod MR, 02/2020MITRAL REGURGITATION, MILD;02/09 WITH NML LVCOUGH DUE TO IRRITATION OF ESOPHAGUSVENOUS INSUFFICIENCY;LEFT LEG;WANTS MEDICAL RX - In-person encounter Office Visit Thien Hardy MD [facility] STENT -12/08 VISION RCA TO GIVE COMP REVASCULAR,DIASTOLIC DYSFUNCTION;MITRAL REGURGITATION;MOD 13AORTIC REGURGITATION, MILD;13 WITH NML EFCOUGH DUE TO IRRITATION OF ESOPHAGUSVENOUS INSUFFICIENCY;LEFT LEG;WANTS MEDICAL RXGERD - In-person encounter Office Visit Thien Hardy MD [facility] HTN--echo ef 55%, mod MR, 02/2020HypercholesterolemiaBra dycardiaDIASTOLIC DYSFUNCTION; - In-person encounter Office Visit Thien Hardy MD [facility] CAD--CABG-01/1997 EWING WITH RADIAL T, OPEN 2012 [id number] -12/08 VISION RCA TO GIVE COMP REVASCULAR,Hypercholesterolemi aDIABETES MELLITUS VITAL SIGNS Date Observation Value Provider Body Mass Index (Ratio) 23.96 kg/m2 Serg Mobley blood pressure, cuff size regular Ke rri Chuck blood pressure, diastolic 86 mm[Hg] Ke rri Chuck blood pressure, systolic 134 mm[Hg] Hima Woods oxygen saturation, oximetry 98 % Kristan Woods pulse rate 81 /min Kristan Joya lder weight E&M 153 [lb_av] Kristan Joya lder height E&M 67 [in_i] Kristan Joya lder Body Mass Index (Ratio) 23.46 kg/m2 Mario Posey MD blood pressure, diastolic 72 mm[Hg] Stevie radha Carreno blood pressure, systolic 135 mm[Hg] Janet ramirez Carreno blood pressure, cuff size regular Stevie radha Carreno oxygen saturation, oximetry 100 % [facility] Carreno pulse rate 60 /min [facility] weight E&M 149.8 [lb_av] [facility] Car[facility] height E&M 67 [in_i] [facility] Body Mass Index (Ratio) 25.06 kg/m2 Delia Bower blood pressure, diastolic 74 mm[Hg] Ja rret blood pressure, systolic 127 mm[Hg] Jar ret pulse rate 61 /min Clayton erda y blood pressure, cuff size regular Ja rret oxygen saturation, oximetry 98 % Clayton respiratory rate E&M 14 /min Clayton weight E&M 160 [lb_av] Clayton er y height E&M 67 [in_i] Clayton erda y Body Mass Index (Ratio) 26.31 kg/m2 Stanislav Serrato MD blood pressure, cuff size regular Ja rret blood pressure, diastolic 82 mm[Hg] Ja rret blood pressure, systolic 158 mm[Hg] Jar ret pulse rate 62 /min Clayton oxygen saturation, oximetry 99 % Clayton respiratory rate E&M 16 /min Clayton weight E&M 168 [lb_av] Clayton y height E&M 67 [in_i] Clayton y Body Mass Index (Ratio) 25.68 kg/m2 Serg Abreumiguel blood pressure, cuff size regular [facility] blood pressure, diastolic 71 mm[Hg] [facility] blood pressure, systolic 188 mm[Hg] [facility] oxygen saturation, oximetry 96 % [facility] respiratory rate E&M 15 /min Yudelka Franko [facility] pulse rate 62 /min [facility] weight E&M 164 [lb_av] [facility] height E&M 67 [in_i] [facility] Body Mass Index (Ratio) 25.68 kg/m2 Serg Leandra blood pressure, cuff size large An luana Burden blood pressure, diastolic 72 mm[Hg] An luana Bertram blood pressure, systolic 131 mm[Hg] Ceci santhosh Burden oxygen saturation, oximetry 97 % Maci Burden pulse rate 58 /min Maci Burden weight E&M 164 [lb_av] Macisanthosh Burden height E&M 67 [in_i] Maci Burden Body Mass Index (Ratio) 25.93 kg/m2 Kasandra Adrian blood pressure, diastolic 81 mm[Hg] St lenard Talbert blood pressure, systolic 140 mm[Hg] Poonam Talbert oxygen saturation, oximetry 98 % Tara Talbert pulse rate 61 /min Tara Talbert respiratory rate E&M 16 /min Tara pendleton weight E&M 165.6 [lb_av] Tara Talbert height E&M 67 [in_i] Tara Talbert Body Mass Index (Ratio) 26.00 kg/m2 Kasandra Adrian blood pressure, diastolic 75 mm[Hg] Machelle Flores blood pressure, systolic 130 mm[Hg] Abel Flores oxygen saturation, oximetry 97 % Nelson Flores respiratory rate E&M 16 /min Fan Flores pulse rate 62 /min Nelson [place] weight E&M 166 [lb_av] Nelson [place] blood pressure, cuff size regular Machelle Flores height E&M 67 [in_i] Nelson [place] Body Mass Index (Ratio) 26.15 kg/m2 Stanislav Serrato MD blood pressure, diastolic 80 mm[Hg] Karin nkLognafisa blood pressure, systolic 140 mm[Hg] Emily kLog blood pressure, cuff size large Tr ross Brennan blood pressure, diastolic 80 mm[Hg] Tr ross Brennan blood pressure, systolic 140 mm[Hg] Michael Brennan oxygen saturation, oximetry 93 % Joseluis Brennan respiratory rate E&M 16 /min Joseluis Brennan pulse rate 56 /min Joseluis Brennan weight E&M 167 [lb_av] Joseluis Brennan height E&M 67 [in_i] Joseluis Brennan Body Mass Index (Ratio) 26.94 kg/m2 Stanislav Serrato MD blood pressure, cuff size regular Cy donna Gomes blood pressure, diastolic 70 mm[Hg] Cy ntinocencia Gomes blood pressure, systolic 112 mm[Hg] Beata thisanthosh Gomes pulse rate 51 /min Cass comer oxygen saturation, oximetry 98 % Cass Gomes respiratory rate E&M 16 /min Cass Gomes weight E&M 172 [lb_av] Cass comer height E&M 67 [in_i] Cass comer Body Mass Index (Ratio) 27.09 kg/m2 Stanislav Serrato MD blood pressure, cuff size large Ke rri Gruenenfelder blood pressure, diastolic 70 mm[Hg] Ke rri Gruenenfelder blood pressure, systolic 112 mm[Hg] Hima ri Florentiner oxygen saturation, oximetry 96 % Kristan Florentiner respiratory rate E&M 16 /min Kristan Keagan perezelder pulse rate 50 /min Kristan Toan lder weight E&M 173 [lb_av] Kristan Grlaminnenfe lder height E&M 67 [in_i] Kristan Toan lder Body Mass Index (Ratio) 26.78 kg/m2 Stanislav Serrato MD blood pressure, diastolic 59 mm[Hg] To nsha Hdez blood pressure, systolic 124 mm[Hg] Ton sha Hdez oxygen saturation, oximetry 96 % Tonsha Hdez respiratory rate E&M 16 /min Tonsha Hdez pulse rate 55 /min Tonsha Hdez weight E&M 171 [lb_av] Tonsha Hdez height E&M 67 [in_i] Tonsha Hdez temperature site temporal Andie Tank sley temperature E&M 97.7 [degF] Andie Tanks ibeth height E&M 67 [in_i] Tonsha Hdez Body Mass Index (Ratio) 26.78 kg/m2 Stanislav Serrato MD blood pressure, diastolic 60 mm[Hg] Jace Nails blood pressure, systolic 140 mm[Hg] Eliane Nails oxygen saturation, oximetry 99 % Mally Nails pulse rate 54 /min Mally Valadez weight E&M 171 [lb_av] Mally Valadez height E&M 67 [in_i] Mally Valadez Body Mass Index (Ratio) 27.09 kg/m2 Stanislav Serrato MD blood pressure, diastolic 80 mm[Hg] Br ittany Block blood pressure, systolic 132 mm[Hg] Neha ttany Block oxygen saturation, oximetry 97 % Laney Block respiratory rate E&M 16 /min Brittan Block pulse rate 60 /min Laney Block weight E&M 173 [lb_av] Laney Block height E&M 67 [in_i] Laney Block Body Mass Index (Ratio) 28.82 kg/m2 Stanislav Serrato MD blood pressure, diastolic 70 mm[Hg] Da wendy Tj blood pressure, systolic 122 mm[Hg] Dac ia Tj oxygen saturation, oximetry 94 % Patito Tj respiratory rate E&M 16 /min Patito V oss pulse rate 62 /min Patito Tj weight E&M 184 [lb_av] Patito Tj height E&M 67 [in_i] Patito Tj Body Mass Index (Ratio) 27.69 kg/m2 Stanislav Serrato MD blood pressure, resting Yes Kill een Cobb blood pressure, diastolic 70 mm[Hg] Ki lleen Cobb blood pressure, systolic 120 mm[Hg] Kil jessica [place] oxygen saturation, oximetry 98 % [place] Cobb respiratory rate E&M 16 /min Carter Cobb pulse rate 57 /min Carter Cobb weight E&M 176.8 [lb_av] Carter Cobb height E&M 67 [in_i] Carter Marquezam Body Mass Index (Ratio) 24.43 kg/m2 Xavier Hardy MD weight E&M 156 [lb_av] Ambersanthosh Gutierrez pulse rate 69 /min Ambersanthosh Gutierrez respiratory rate E&M 16 /min Amber Gutierrez blood pressure, cuff size regular Machelle briseno Matt blood pressure, diastolic 80 mm[Hg] Aracely Smith blood pressure, systolic 130 mm[Hg] Temi aryan Matt oxygen saturation, oximetry 95 % Ambersanthosh Gutierrez height E&M 67 [in_i] Ambersanthosh Gutierrez Body Mass Index (Ratio) 26.15 kg/m2 Xavier Hardy MD blood pressure, cuff size regular Castro Woods blood pressure, diastolic 60 mm[Hg] Ke rremily Woods blood pressure, systolic 196 mm[Hg] Hima Woods oxygen saturation, oximetry 98 % Kristan Woods respiratory rate E&M 16 /min Kristan arreguin pulse rate 64 /min Kristan helm weight E&M 167 [lb_av] Kristan helm height E&M 67 [in_i] Kristan helm blood pressure, diastolic 82 mm[Hg] Te bryon Jarvis blood pressure, systolic 136 mm[Hg] Adama Jarvis pulse rate 67 /min Shraddha Jarvis oxygen saturation, oximetry 98 % Shraddha Jarvis respiratory rate E&M 18 /min Shraddha Juarezhley Body Mass Index (Ratio) 25.75 kg/m2 Feroz Jarvis weight E&M 164.4 [lb_av] Shraddha faulkner blood pressure, diastolic 80 mm[Hg] Sly Conteh blood pressure, systolic 164 mm[Hg] Theresa Conteh pulse rate 70 /min Pb Ramirez nson oxygen saturation, oximetry 94 % Pb Conteh respiratory rate E&M 18 /min Sharita Conteh Body Mass Index (Ratio) 25.56 kg/m2 Damaris Conteh weight E&M 163.2 [lb_av] Pb dao blood pressure, diastolic 86 mm[Hg] Sly Conteh blood pressure, systolic 164 mm[Hg] Theresa Conteh Body Mass Index (Ratio) 25.09 kg/m2 Damaris Conteh pulse rate 67 /min Pb espitia oxygen saturation, oximetry 96 % Pb Conteh respiratory rate E&M 18 /min Sharita Conteh weight E&M 160.2 [lb_av] Pb dao Body Mass Index (Ratio) 25.21 kg/m2 Anea ash Moy blood pressure, diastolic 90 mm[Hg] An eatris Moy blood pressure, systolic 165 mm[Hg] Ane atris Brown pulse rate 67 /min Aneatris Brown oxygen saturation, oximetry 98 % Aneatris Brown respiratory rate E&M 20 /min Aneatri s Moy weight E&M 161 [lb_av] Aneatris Brown Body Mass Index (Ratio) 25.15 kg/m2 Chaparro i Chuck blood pressure, diastolic 79 mm[Hg] Ke rri Chuck blood pressure, systolic 147 mm[Hg] Hima diane Chuck pulse rate 69 /min Kristan Schneiderihsansong janieer oxygen saturation, oximetry 98 % Kristan Chuck respiratory rate E&M 15 /min Kristan Boogie kallie weight E&M 160 [lb_av] Kristan Toan limaer blood pressure, diastolic 86 mm[Hg] Carlos Monzon RN blood pressure, systolic 152 mm[Hg] Yan Monzon RN pulse rate 77 /min Yan Monzon RN oxygen saturation, oximetry 98 % Yan Monzon RN respiratory rate E&M 16 /min Yan rooney RN Body Mass Index (Ratio) 25.15 kg/m2 Yan Monzon RN weight E&M 160 [lb_av] Yan Monzon RN blood pressure, diastolic, left arm 92 mm [Hg] Yan Monzon RN blood pressure, systolic, left arm 149 mm [Hg] Yan Monzon RN blood pressure, diastolic, right arm 86 m m[Hg] Yan Monzon RN blood pressure, systolic, right arm 152 m m[Hg] Yan Monzon RN blood pressure, diastolic 92 mm[Hg] Carlos Monzon RN blood pressure, systolic 149 mm[Hg] Yan Monzon RN pulse rate 69 /min Yan Monzon RN oxygen saturation, oximetry 98 % Yan Monzon RN respiratory rate E&M 16 /min Yan Farah rks RN Body Mass Index (Ratio) 24.99 kg/m2 Yan Monzon RN weight E&M 159 [lb_av] Yan Monzon RN height E&M 67 [in_i] Yan Monzon RN blood pressure, diastolic, left arm 86 mm [Hg] Yan Monzon RN blood pressure, systolic, left arm 160 mm [Hg] Yan Monzon RN blood pressure, diastolic, right arm 86 m m[Hg] Yan Monzon RN blood pressure, systolic, right arm 161 m m[Hg] Yan Monzon RN blood pressure, diastolic 86 mm[Hg] Carlos Monzon RN blood pressure, systolic 161 mm[Hg] Yan Monzon RN pulse rate 66 /min Yan Monzon RN oxygen saturation, oximetry 99 % Yan Monzon RN respiratory rate E&M 18 /min Yan rooney RN weight E&M 167 [lb_av] Yan Monzon RN blood pressure, diastolic, left arm 87 mm [Hg] Krystal O'Usman blood pressure, systolic, left arm 149 mm [Hg] Krystal O'Usman blood pressure, diastolic, right arm 78 m m[Hg] Krystal O'Usman blood pressure, systolic, right arm 143 m m[Hg] Krystal O'Usman blood pressure, diastolic 78 mm[Hg] [facility] O'Usman blood pressure, systolic 143 mm[Hg] [facility] cristina O'Usman pulse rate 63 /min Krystal O'Usman oxygen saturation, oximetry 96 % Krystal O'Usman respiratory rate E&M 18 /min Krystal O'Usman weight E&M 173 [lb_av] Krystal O'Usman blood pressure, diastolic, left arm 79 mm [Hg] Yan Monzon RN blood pressure, systolic, left arm 134 mm [Hg] Yan Monzon RN blood pressure, diastolic, right arm 82 m m[Hg] Yan Monzon RN blood pressure, systolic, right arm 150 m m[Hg] Yan Monzon RN blood pressure, diastolic 79 mm[Hg] Carlos Monzon RN blood pressure, systolic 134 mm[Hg] Yan Monzon RN pulse rate 59 /min Yan Monzon RN oxygen saturation, oximetry 99 % Yan Monzon JACK respiratory rate E&M 16 /min Yan Gagan mosesjude SANTIAGO weight E&M 173 [lb_av] Yan Monzon JACK blood pressure, diastolic 79 mm[Hg] Carlos Monzon JACK blood pressure, systolic 155 mm[Hg] Yan Monzon JACK pulse rate 69 /min Yan Monzon JACK oxygen saturation, oximetry 98 % Yan Monzon JACK respiratory rate E&M 18 /min Yan Gagan mosesjude SANTIAGO weight E&M 175 [lb_av] Yan Monzon RN ALLERGIES Allergy Name Onset Date Reaction Criticality Status METFORMIN HCL made kidney function elevated Low Criticality active RESULTS Date Observation Value Provider Reference Range Interpretation Location vitamin b12, serum 484.1 pg/mL [facility] 211.0 - 946.0 very low density lipoproteins 31.4 mg/dL [facility] 5.0 - 40.0 LDL/HDL (low-density lipoprotein/high-de nsity lipoprotein) ratio 2.3 RATIO [facility] - lipoprotein, beta, serum, point, quantitative, calculated 101.6 (?) [facility] 0.0 - 100.0 High HDL cholesterol, serum 44.0 mg/dL [facility] 35.0 - 55.0 cholesterol, serum 177.0 mg/dL [facility] 0.0 - 200.0 triglyceride, serum, fasting 157.0 mg/dL [facility] 0.0 - 150.0 High anion gap, serum 14.2 [facility] - albumin/globulin ratio, serum 2.1 g/dL [facility] 1.1 - 2.5 globulin, serum 2.4 [facility] 2.3 - 3.8 urea nitrogen/creatinine ratio, serum 12.5 [facility] - Estimated Glomerular Filtration Rate (calc) 44.7 (?) [facility] 59.0 - Low chloride, serum 101.8 mmol/L [facility] 98.0 - 107.0 potassium, serum 4.6 mmol/L [facility] 3.5 - 5.1 sodium, serum 142.0 mmol/L [facility] 136.0 - 145.0 creatinine, serum 1.6 mg/dL [facility] 0.7 - 1.2 High carbon dioxide, venous blood 26.0 mmol/L [facility] 23.0 - 31.0 albumin, serum 5.0 g/dL [facility] 3.5 - 5.2 calcium, serum 10.1 mg/dL [facility] 8.6 - 10.2 aspartate aminotransferase (SGOT), serum 11.0 1/L [facility] 0.0 - 40.0 alkaline phosphatase, serum 70.0 1/L [facility] 40.0 - 130.0 alanine aminotransferase (SGPT), serum 11.0 1/L [facility] 0.0 - 41.0 protein, total, serum 7.4 g/dL [facility] 6.6 - 8.7 bilirubin, serum, total 0.4 mg/dL [facility] 0.0 - 1.2 urea nitrogen, blood [facility].0 [facility] - 23.0 blood glucose, random 103.0 mg/dL [facility] 74.0 - 99.0 High red blood cell distribution width, size density 45.6 fL [facility] - immature granulocytes, percentage of total cells, blood 0.5 % [facility] - nucleated red blood cells as percent of blood leukocytes 0.0 % [facility] - red blood cell (erythrocyte) count, per high power field 0.0 10*3/UL [facility] - eosinophils as percent of blood leukocytes 5.8 % [facility] - neutrophils as percent of blood leukocytes 67.9 % [facility] - Absolute Neutrophils 4.4 CELLS/[facility] 1.5 - 7.8 basophils as percent of blood leukocytes 0.6 % [facility] - Absolute Basophils 0.0 CELLS/UL [facility] 0.0 - 0.2 monocytes as percent of blood leukocytes 6.6 % [facility] - Absolute Monocytes 0.4 CELLS/UL [facility] 0.2 - 1.0 lymphocytes as percent of blood leukocytes 18.6 % [facility] - Absolute Lymphocytes 1.2 CELLS/UL [facility] 0.9 - 3.9 mean platelet volume 11.2 (?) [facility] - platelet count 228.0 THOUSAND/U L [facility] 100.0 - 400.0 mean corpuscular hemoglobin concentration, RBC 31.9 G/DL [facility] 31.0 - 38.0 mean corpuscular hemoglobin, RBC 29.4 pg [facility] 25.0 - 35.0 mean corpuscular volume, RBC 92.0 fL [facility] 75.0 - 100.0 hematocrit, blood 40.1 % [facility] 35.0 - 55.0 hemoglobin, blood 12.8 g/dL [facility] 11.5 - 16.5 erythrocyte count, whole blood 4.4 MILLION/UL [facility] 3.5 - 5.5 activated partial thromboplastin time 28.4 SECONDS [facility] 23.0 - 33.0 prothrombin time (patient) 10.8 s [facility] 9.0 - 11.5 international normalized ratio (INR) 1.0 [facility] 0.9 - 1.1 hemoglobin A1C, blood, as % of total hemoglobin 6.7 % [facility] 4.0 - 5.6 High folate, serum 13.8 NG/MLM [facility] 5.6 - 45.8 vitamin b12, serum 133.4 pg/mL [facility] 211.0 - 946.0 Low very low density lipoproteins 29.0 mg/dL [facility] 5.0 - 40.0 LDL/HDL (low-density lipoprotein/high-de nsity lipoprotein) ratio 1.5 RATIO [facility] - lipoprotein, beta, serum, point, quantitative, calculated 69.0 (?) [facility] 0.0 - 100.0 HDL cholesterol, serum 45.0 mg/dL [facility] 35.0 - 55.0 cholesterol, serum 143.0 mg/dL [facility] 0.0 - 200.0 triglyceride, serum, fasting 145.0 mg/dL [facility] 0.0 - 150.0 ferritin, serum 59.3 ng/mL [facility] 30.0 - 400.0 red blood cell distribution width, size density 49.0 fL [facility] - immature granulocytes, percentage of total cells, blood 1.0 % [facility] - nucleated red blood cells as percent of blood leukocytes 0.0 % [facility] - red blood cell (erythrocyte) count, per high power field 0.0 10*3/UL [facility] - eosinophils as percent of blood leukocytes 5.1 % [facility] - neutrophils as percent of blood leukocytes 61.0 % [facility] - Absolute Neutrophils 3.1 CELLS/UL [facility] 1.5 - 7.8 basophils as percent of blood leukocytes 0.6 % [facility] - Absolute Basophils 0.0 CELLS/UL [facility] 0.0 - 0.2 monocytes as percent of blood leukocytes 8.0 % [facility] - Absolute Monocytes 0.4 CELLS/UL [facility] 0.2 - 1.0 lymphocytes as percent of blood leukocytes 24.3 % [facility] - Absolute Lymphocytes 1.2 CELLS/UL [facility] 0.9 - 3.9 mean platelet volume 11.7 (?) [facility] - platelet count 216.0 THOUSAND/U L [facility] 100.0 - 400.0 mean corpuscular hemoglobin concentration, RBC 30.5 G/DL [facility] 31.0 - 38.0 Low mean corpuscular hemoglobin, RBC 29.0 pg [facility] 25.0 - 35.0 mean corpuscular volume, RBC 94.9 fL [facility] 75.0 - 100.0 hematocrit, blood 42.6 % [facility] 35.0 - 55.0 hemoglobin, blood 13.0 g/dL [facility] 11.5 - 16.5 erythrocyte count, whole blood 4.5 MILLION/UL [facility] 3.5 - 5.5 iron, serum 71.0 ug/dL [facility] 31.0 - 144.0 iron saturation percent, serum 18.6 % [facility] 20.0 - 50.0 Low iron binding capacity, total 380.8 ug/dL [facility] - [facility].0 hemoglobin A1C, blood, as % of total hemoglobin 7.2 % [employer] 4.0 - 6.0 High reticulocyte count, absolute 0.080 10*6 CELLS/UL [facility] - reticulocyte count, blood, uncorrected 1.79 % [facility] 0.50 - 2.00 platelet count 174 10*3/mm3 Natacha Hodges hematocrit, blood 39.0 % Natacha Hodges international normalized ratio (INR) 1.0 Natacha Hodges creatinine, serum 1.13 mg/dL Natacha Hodges potassium, serum 4.4 mmol/L Natacha Hodges sodium, serum 143 mmol/L Natacha Hodges HISTORY OF MEDICATION USE Medication Status Instructions Dates Provider Indications Com ments ergocalciferol (vitamin D2) 1,250 mcg (50,000 unit) capsule active TAKE 1 CAPSULE BY MOUTH 1 TIME A WEEK Serg Mobley tramadol 50 mg tablet active TAKE 1 TABLET BY MOUTH TWICE DAILY NEEDED Serg Mobley Ozempic 0.25 mg or 0.5 mg (2 mg/3 mL) pen injector active 0.5 mg Serg Mobley calcitriol 0.25 mcg capsule completed TAKE 1 CAPSULE BY MOUTH EVERY DAY - Serg Mobley Ozempic 0.25 mg or 0.5 mg(2 mg/1.5 mL) pen injector completed - Serg Ahmedzaemily calcitriol 0.25 mcg capsule completed Take 1 capsule by mouth once a day - Isha Bro cholecalciferol (vitamin D3) 1,250 mcg (50,000 unit) capsule completed 1 capsule by mouth once a week - Serg Mobley PLAVIX 75 MG ORAL TABLET completed ONE TAB. DAILY - Nickie Serrato MD Januvia 100 mg tablet active 1 tablet by mouth once a day Vikram Daniel pantoprazole 40 mg tablet,delayed release (DR/EC) active Take 1 tablet by mouth once a day Patito Spencer AMITRIPTYLINE HCL 25 MG ORAL TABLET completed take one at bedtime - Vikram Daniel Eliquis 2.5 mg tablet active Take 1 tablet by mouth twice a day Kristan Woods carvedilol 25 mg tablet active 1 tablet by mouth twice a day Mally Esparza CHLORTHALIDONE 25 MG ORAL TABLET completed ONE TAB. DAILY - Carter Cobb cyanocobalamin (vitamin B-12) 1,000 mcg/mL solution active once a month Thien Hardy MD CALCIUM CITRATE + D3 TABLET completed DAILY - Carter Cobb PLAVIX 75 MG ORAL TABLET completed ONE TAB. DAILY - Thien Hardy MD glipizide 10 mg tablet extended release 24hr active 1 tablet by mouth twice a day Vikram Daniel VITAMIN E 400 UNIT ORAL CAPSULE completed ONE TAB. DAILY - Alex Figueroa PANTOPRAZOLE SODIUM 40 MG ORAL TABLET DELAYED RELEASE completed take one pill a day - Carter Cobb ASPIRIN ADULT LOW DOSE 81 MG ORAL TABLET DELAYED RELEASE completed One Tab By Mouth Daily - Nickie Serrato MD simvastatin 40 mg tablet active 1 tablet by mouth once a day Thien Hardy MD losartan 100 mg tablet active Take 1 tablet by mouth once a day Vikram Ramboadele SOCIAL HISTORY Date Observation Value Provider drug use no Serg Mobley alcohol use no Serg Mobley passive cigarette sm guerrero exposure no Serg Mobley smoking status Never smoker Serg Mobley drug use no Sven Styles alcohol use no Sven Styles passive cigarette sm guerrero exposure no Sven Posey MD smoking status Never smoker Sven Posey MD drug use no Serg Mobley alcohol use no Serg Mobley passive cigarette sm guerrero exposure no Serg Mobley smoking status Never smoker Serg Mobley drug use no Serg Mobley alcohol use no Serg Mobley passive cigarette sm guerrero exposure no Serg Mobley smoking status Never smoker Serg Mobley drug use no Serg Mobley alcohol use no Serg Mobley passive cigarette sm guerrero exposure no Serg Mobley smoking status Never smoker Serg Mobley social history reviewed E&M revi ewed - no changes required Serg Mobley social history E&M Marital Statu s: L damian with family/friends E thnicity: Smoking History: P atient has never smoked. Serg Mobley Exercise counseling yes Maci Hieu lia physical exercise, f requency, days per week yes Maci Burden caffeine use, averag e drinks per day no Maci Burden passive cigarette sm guerrero exposure no Maci Burden smoking status Never smoker Maci Burden social history reviewed E&M revi ewed - no changes required Serg Mobley social history E&M Marital Statu s: L damian with family/friends E thnicity: Smoking History: P tania has never smoked. Serg Mobley Exercise counseling yes Tara Fraga physical exercise, f requency, days per week yes Tara Talbert caffeine use, averag e drinks per day no Tara Talbert passive cigarette sm guerrero exposure no Tara Talbert smoking status Never smoker Tara Talbert social history reviewed E&M revi ewed - no changes required Serg Mobley social history E&M Marital Statu s: L damian with family/friends E thnicity: Smoking History: P tania has never smoked. Vikram Daniel physical exercise, f requency, days per week yes Vikram Daniel caffeine use, averag e drinks per day no Vikram Daniel passive cigarette sm guerrero exposure no Vikram Daniel smoking status Never smoker Vikram Daniel social history reviewed E&M revi ewed - no changes required Vikram Daniel Exercise counseling yes Lakshmi Flores smoking status Never smoker Joseluis watkins social history reviewed E&M revi ewed - no changes required Serg Mobley social history E&M Marital Statu s: L damian with family/friends E thnicity: Smoking History: P tania has never smoked. Nickie Serarto MD social history reviewed E&M revi ewed - no changes required Nickie Serrato MD physical exercise, f requency, days per week yes Cass Eliseo caffeine use, averag e drinks per day no Cass Eliseo passive cigarette sm guerrero exposure no Cass Eliseo smoking status Never smoker Cass Ferreiracelio ga social history E&M Marital Statu s: L damian with family/friends E thnicity: Smoking History: P tania has never smoked. Nickie Serrato MD social history reviewed E&M revemily ewed - no changes required Nickie Serrato MD physical exercise, f requency, days per week yes Kristan Woods caffeine use, averag e drinks per day no Kristan Woods passive cigarette sm guerrero exposure no Kristan Woods smoking status Never smoker Kristan weston physical exercise, f requency, days per week yes Tonsha Hdez caffeine use, averag e drinks per day [facility] guerrero exposure no Tonsha Hdez smoking status Never smoker [facility] social history E&M Marital Statu s: L damian with family/friends E thnicity: Smoking History: P tania has never smoked. Vikram Daniel social history reviewed E&M revi ewed - no changes required Vikram Daniel physical exercise, f requency, days per week yes [facility] caffeine use, averag e drinks per day no [facility] passive cigarette sm guerrero exposure no [facility] smoking status Never smoker [facility] social history E&M Marital Statu s: L damian with family/friends E thnicity: Smoking History: P tania has never smoked. Nickie Serrato MD physical exercise, f requency, days per week yes Mally Nails caffeine use, averag e drinks per day no Mally Bello-Rory passive cigarette sm guerrero exposure no Mally Bello-Rory smoking status Never smoker Mally Altmanmarissa majano-Rory social history reviewed E&M revi ewed - no changes required Mally Nails social history reviewed E&M revi ewed - no changes required Nickie Serrato MD social history E&M Marital Statu s: Reji salgado with family/friends E thnicity: Smoking History: P tania has never smoked. Nickie Serrato MD physical exercise, f requency, days per week yes Laney Block alcohol use, average drinks per day no Laney Block alcohol use no Laney Block caffeine use, averag e drinks per day no Laney Block drug use no Laney Block passive cigarette sm guerrero exposure no Laney Block smoking status Never smoker Laney [facility] social history reviewed E&M revi ewed - no changes required Nickie Serrato MD physical exercise, f requency, days per week yes Patito Tj alcohol use, average drinks per day no Patito Tj alcohol use no Patito Tj caffeine use, averag e drinks per day no Patito Tj drug use no Patito Tj passive cigarette sm guerrero exposure no Patito Tj smoking status Never smoker Patito Tj social history reviewed E&M revi ewed - no changes required Nickie Serrato MD number of grandchildren Nickie Serrato MD K irene Marquezam physical exercise, f requency, days per week yes [place] Cobb alcohol use, average drinks per day no Carter Cobb alcohol use no Carter Cobb caffeine use, averag e drinks per day no [place] drug use no [place] passive cigarette sm guerrero exposure no Carter Cobb smoking status Never smoker Carter peterson social history E&M Marital Statu s: L damian with family/friends E thnicity: Smoking History: P tania has never smoked. Thien Hardy MD social history reviewed E&M revi ewed - no changes required Thien Hardy MD physical exercise, f requency, days per week yes Ambersanthosh Gutierrez alcohol use, average drinks per day no Ambersanthosh Gutierrez alcohol use no Ambersanthosh Gutierrez caffeine use, averag e drinks per day no Ambersanthosh Gutierrez drug use no Ambersanthosh Gutierrez passive cigarette sm guerrero exposure no Amber Matt smoking status Never smoker Ambersanthosh Gutierrez social history E&M Marital Statu s: L damian with family/friends E thnicity: Smoking History: P tania has never smoked. Thien Hardy MD social history reviewed E&M revi ewed - no changes required Thien Hardy MD physical exercise, f requency, days per week yes Kristan Woods alcohol use, average drinks per day no Kristan Woods alcohol use no Kristna helm caffeine use, averag e drinks per day no Kristan Woods drug use no Kristan Fabionegenny helm passive cigarette sm guerrero exposure no Kristan Chuck smoking status Never smoker Kristan weston number of grandchildren Thien Jarvis social history E&M Marital Statu s: L damian with family/friends E thnicity: Smoking History: P tania has never smoked. Thien Hardy MD social history reviewed E&M revi ewed - no changes required Thien Hardy MD physical exercise, f requency, days per week yes Pb Conteh alcohol use, average drinks per day no Pb Conteh alcohol use no Pb Beane nson caffeine use, averag e drinks per day no Pb Beanenson drug use no Pb Beane nson passive cigarette sm guerrero exposure no Pb Conteh smoking status Never smoker Pb Damon social history reviewed E&M revi ewed - no changes required Thien Hardy MD physical exercise, f requency, days per week yes Pb Conteh alcohol use, average drinks per day no Pb Conteh caffeine use, averag e drinks per day no Pb Conteh drug use no Pb Beane nson passive cigarette sm guerrero exposure no Pb Conteh smoking status Never smoker Pb Damon social history reviewed E&M revi ewed - no changes required Thien Hardy MD social history reviewed E&M reviewed Thien Hardy MD social history reviewed E&M reviewed Thien Hardy MD drug use no Yan Monzon RN passive cigarette sm guerrero exposure no Yan Monzon RN smoking status never smoker Yan Monzon RN social history reviewed E&M reviewed Yan Monzon RN social history reviewed E&M reviewed Yan Monzon RN social history reviewed E&M reviewed Yan Monzon RN social history reviewed E&M reviewed Yan Monzon RN social history E&M Marital Statu s: L damian with family/friends E thnicity: Yan Monzon RN alcohol use, average drinks per day no Yan Monzon RN smoking status Non-Smoker Yan Monzon RN social history reviewed E&M reviewed Yan Monzon RN physical exercise, f requency, days per week yes [employer] caffeine use, averag e drinks per day no [employer] FUNCTIONAL STATUS Date Observation Value Provider HRA, CV Assess/Plan, Angina (inactive) Management Plan continue current therapy Serg Ahmedzai HRA, CV Assess/Plan, Angina (inactive) Management Plan continue current therapy Serg Ahmedzai HRA, CV Assess/Plan, Angina (inactive) Management Plan continue current therapy Serg Ahmedzai HRA, CV Assess/Plan, Angina (inactive) Management Plan continue current therapy Serg Ahmedzai HRA, CV Assess/Plan, Angina (inactive) Management Plan continue current therapy Serg Ahmedzai HRA, CV Assess/Plan, Angina (inactive) Management Plan continue current therapy Serg Ahmedzai HRA, CV Assess/Plan, Angina (inactive) Management Plan continue current therapy Serg Ahmedzai HRA, CV Assess/Plan, Angina (inactive) Management Plan continue current therapy Vikram Daniel HRA, CV Assess/Plan, Angina (inactive) Management Plan continue current therapy Serg Ahmedzai HRA, CV Assess/Plan, Angina (inactive) Management Plan continue current therapy Nickie Serrato MD HRA, CV Assess/Plan, Angina (inactive) Management Plan continue current therapy Vikram Daniel HRA, CV Assess/Plan, Angina (inactive) Management Plan continue current therapy Vikram Daniel HRA, CV Assess/Plan, Angina (inactive) Management Plan continue current therapy Nickie Serrato MD HRA, CV Assess/Plan, Angina (inactive) Management Plan continue current therapy Nickie Serrato MD HRA, CV Assess/Plan, Angina (inactive) Management Plan continue current therapy Nickie Serrato MD HRA, CV Assess/Plan, Angina (inactive) Management Plan continue current therapy Thien Hardy MD HRA, CV Assess/Plan, Angina (inactive) Management Plan continue current therapy Thien Hardy MD HRA, CV Assess/Plan, Angina (inactive) Management Plan continue current therapy Thien Hardy MD HRA, CV Assess/Plan, Angina (inactive) Management Plan continue current therapy Thien Hardy MD MENTAL STATUS Date Observation Value Provider assessment of judgme nt and insight E&M Alert and oriented to time, place and person. Mood and affect are normal. Thien Hardy MD assessment of judgme nt and insight E&M Alert and oriented to time, place and person. Mood and affect are normal. Yan Monzon RN assessment of judgme nt and insight E&M Alert and oriented to time, place and person. Mood and affect are normal. Yan Monzon RN assessment of judgme nt and insight E&M Alert and oriented to time, place and person. Mood and affect are normal. Yan Monzon RN assessment of judgme nt and insight E&M Alert and oriented to time, place and person. Mood and affect are normal. Yan Monzon RN assessment of judgme nt and insight E&M Alert and oriented to time, place and person. Mood and affect are normal. Yan Monzon RN assessment of judgme nt and insight E&M Alert and oriented to time, place and person. Mood and affect are normal. Yan Monzon RN FAMILY HISTORY Family Member Condition Mother Family History of Hy pertension: INSURANCE PROVIDERS Payer name Policy type / Coverage type Swapna red democrat ID [employer] MEDICARE ADVANTAGE HMO-POS HMO [id number] ADVANCE DIRECTIVES Name Date LIVING WILL ON FILE TREATMENT PLAN Date Name Performer [id number],S, Serg Abreumedza i [id number],S, Serg Abreumedza i [id number],S, Serg Abreumedza i [id number],SSergmedza i [id number],S, Serg Abreumedza i [id number],S, Serg medza i [id number],S, Serg medza i [id number],S, Serg medza i [id number],S, [id number],S, Serg medza i [id number],S, Serg medza i [id number],S, [facility] [id number],S, Serg medza i [id number],S, [facility] [id number],S, [facility] [id number],S, [facility] [id number],S, [facility] [id number],S, [facility] [id number],S, [facility] [id number],S, [facility] [id number],S, [facility] [id number],S, [facility] [id number],S, [facility] [id number],S, [facility] [id number],S, Vikram Nacht [id number],S, Vikram Nacht [id number],S, Vikram Nacht [id number],S, Vikram Nacht [id number],S, Vikram Rickst [id number],B, Serg Lopez i [id number],S, Serg Lopez i [id number],B, Serg Lopez i [id number],B, Serg Lopez i Cardiology: H is updated medication list for this problem includes: Carvedilol 25 Mg Tablet (Carvedilol) ..... 1 tablet by mouth twice a day Nickie Serrato MD Cardiology: H is updated medication list for this problem includes: Losartan 100 Mg Tablet (Losartan) ..... Take 1 tablet by mouth once a day Carvedilol 25 Mg Tablet (Carvedilol) ..... 1 tablet by mouth twice a day BP today: 134/86 P rior BP: 135/72 (02/05/2024) Labs Reviewed: C reat: 1.6 (04/12/2016) C hol: 177.0 (04/12/2016) HDL: 44.0 (04/12/2016) LDL: 101.6 (?) (04/12/2016) T.0 (04/12/2016) Nickie Serrato MD Cardiology: H is updated medication list for this problem includes: Carvedilol 25 Mg Tablet (Carvedilol) ..... 1 tablet by mouth twice a day Nickie Serrato MD Cardiology: H is updated medication list for this problem includes: Carvedilol 25 Mg Tablet (Carvedilol) ..... 1 tablet by mouth twice a day Nickie Serrato MD Cardiology:This visi t has been a part of the consistent, comprehensive, and ongoing management of the chronic medical condition(s) listed above for the patient. His updated medication list for this problem includes: Carvedilol 25 Mg Tablet (Carvedilol) ..... 1 tablet by mouth twice a day E liquis 2.5 mg BID Nickie Serrato MD Cardiology:S/P PPM. W ound looks good P atient feels much better with pacemaker. F /U with Dr Serrato as scheduled. Sven Posey MD Cardiology:This visi t has been a part of the consistent, comprehensive, and ongoing management of the chronic medical condition(s) listed above for the patient. BP today: 127/74 P rior BP: 158/82 (06/25/2023) Labs Reviewed: C reat: 1.6 (04/12/2016) C hol: 177.0 (04/12/2016) HDL: 44.0 (04/12/2016) LDL: 101.6 (?) (04/12/2016) T.0 (04/12/2016) His updated medication list for this problem includes: Losartan 100 Mg Tablet (Losartan) ..... Take 1 tablet by mouth once a day Carvedilol 25 Mg Tablet (Carvedilol) ..... 1 tablet by mouth twice a day Nickie Serrato MD Cardiology: H is updated medication list for this problem includes: Carvedilol 25 Mg Tablet (Carvedilol) ..... 1 tablet by mouth twice a day Serg Mobley Cardiology: B P today: 127/74 P rior BP: 158/82 (06/25/2023) Labs Reviewed: C reat: 1.6 (04/12/2016) C hol: 177.0 (04/12/2016) HDL: 44.0 (04/12/2016) LDL: 101.6 (?) (04/12/2016) T.0 (04/12/2016) His updated medication list for this problem includes: Losartan 100 Mg Tablet (Losartan) ..... Take 1 tablet by mouth once a day Carvedilol 25 Mg Tablet (Carvedilol) ..... 1 tablet by mouth twice a day Serg Mobley Cardiology: H is updated medication list for this problem includes: Carvedilol 25 Mg Tablet (Carvedilol) ..... 1 tablet by mouth twice a day Serg Mobley Cardiology: H is updated medication list for this problem includes: Carvedilol 25 Mg Tablet (Carvedilol) ..... 1 tablet by mouth twice a day [facility]: H is updated medication list for this problem includes: Glipizide 10 Mg Tablet Extended Release 24hr (Glipizide) ..... 1 tablet by mouth twice a day Losartan 100 Mg Tablet (Losartan) ..... Take 1 tablet by mouth once a day Januvia 100 Mg Tablet (Sitagliptin) ..... 1 tablet by mouth once a day [facility] Cardiology: H is updated medication list for this problem includes: Simvastatin 40 Mg Tablet (Simvastatin) ..... 1 tablet by mouth once a day [facility] Cardiology: H is updated medication list for this problem includes: Carvedilol 25 Mg Tablet (Carvedilol) ..... 1 tablet by mouth twice a day [facility] Cardiology: H is updated medication list for this problem includes: Carvedilol 25 Mg Tablet (Carvedilol) ..... 1 tablet by mouth twice a day [facility] Cardiology: H is updated medication list for this problem includes: Losartan 100 Mg Tablet (Losartan) ..... Take 1 tablet by mouth once a day Carvedilol 25 Mg Tablet (Carvedilol) ..... 1 tablet by mouth twice a day BP today: 158/82 P rior BP: 188/71 (03/12/2023) Labs Reviewed: C reat: 1.6 (04/12/2016) C hol: 177.0 (04/12/2016) HDL: 44.0 (04/12/2016) LDL: 101.6 (?) (04/12/2016) T.0 (04/12/2016) [facility] Cardiology: H is updated medication list for this problem includes: Carvedilol 25 Mg Tablet (Carvedilol) ..... 1 tablet by mouth twice a day [facility] Serg Ahmedzai Telehealth Serg Ahmedzai Telehealth Serg Ahmedzai Telehealth Serg Ahmedzai Telehealth Serg Ahmedzai Telehealth Serg Ahmedzai Telehealth Serg Ahmedzai Telehealth:MRI of br ain showed no acute abnormalities, small vessel ischemic changes. Carotid doppler <50% disease. X ray of spine shows degenerative changes. Serg Ahmedzai Cardiology Serg Ahmedzai Cardiology Serg Ahmedzai Cardiology Serg Ahmedzai Cardiology Serg Ahmedzai Cardiology Serg Ahmedzai Cardiology Serg Ahmedzai Cardiology Serg Ahmedzai Cardiology Serg Ahmedzai Cardiology Serg Ahmedzai Cardiology Serg Ahmedzai Cardiology Serg Ahmedzai Cardiology Serg Ahmedzai Cardiology Serg Ahmedzai Cardiology Serg Ahmedzai Cardiology Serg Ahmedzai Cardiology Serg Ahmedzai Cardiology Serg Ahmedzai Cardiology Serg Ahmedzai Cardiology Serg Ahmedzai Cardiology Serg Ahmedzai Telehealth Serg Ahmedzai Telehealth Serg Ahmedzai Telehealth Serg Ahmedzai Telehealth Serg Ahmedzai Telehealth Serg Ahmedzai Cardiology Serg Ahmedzai Cardiology Serg Ahmedzai Cardiology Serg Ahmedzai Cardiology Serg Ahmedzai Cardiology Serg Ahmedzai Cardiology Serg Ahmedzai Cardiology Serg Ahmedzai Cardiology Vikram Nacht Cardiology Vikram Nacht Cardiology Vikram Nacht Cardiology Vikram Nacht Cardiology Vikram Nacht Cardiology Nickie Serrato MD Cardiology Serg Ahmedzai Cardiology Nickie Serrato MD Cardiology Nickie Serrato MD Cardiology follow up Nickie tubbs MD Cardiology follow up Nickie tubbs MD Cardiology follow up Nickie tubbs MD Cardiology follow up Tonderick tubbs MD Cardiology follow up Tonderick tubbs MD Cardiology Vikram Nacht Cardiology Vikram Nacht Cardiology Vikram Nacht Cardiology Vikram Nacht Cardiology Vikram Nacht TeleHealth 1year f/up Toniya Orlando to MD TeleHealth 1year f/up Toniya Orlando to MD TeleHealth 1year f/up Toniya Orlando to MD TeleHealth 1year f/up Toniya Orlando to MD Cardiology Nickie Serrato MD Cardiology Nickie Serrato MD Cardiology Nickie Serrato MD Cardiology Nickie Serrato MD Cardiology Nickie Serrato MD Cardiology Nickie Serrato MD Cardiology Nickie Serrato MD Cardiology Nickie Serrato MD Cardiology Nickie Serrato MD Cardiology Nickie Serrato MD Cardiology Nickie Serrato MD Cardiology Nickie Serrato MD Cardiology Nickie Serrato MD Cardiology Nickie Serrato MD Cardiology Nickie Serrato MD Cardiology follow up :BP today: 122/70 P rior BP: 120/70 (04/16/2017) Nickie Serrato MD Cardiology follow up :C/o coughing mostly when he is drinking liquids. Most likely due to irritation of the esophagus. Nickie Serrato MD Cardiology follow up :He denies chest pain, edema, palpitations. Nickie Serrato MD Cardiology: B P today: 120/70 P rior BP: 130/80 (05/17/2016) Labs Reviewed: C reat: 1.6 (04/12/2016) C hol: 177.0 (04/12/2016) HDL: 44.0 (04/12/2016) T.0 (04/12/2016) Nickie Serrato MD Cardiology Nickie Serrato MD Cardiology:On today' s EKG. Patient currently not on OAC. W ill start Eliquis 2.5mg bid S top aspirin 81mg. W ill check 24 hour ZIO monitor and echo. Nickie Serrato MD Cardiology Nickie Serrato MD [facility] Follow up:ef 67 Thien Hardy MD [facility] Follow up Adonis Hardy MD [facility] Follow up:CHOL: 177.0 (04/12/2016) HDL: 44.0 (04/12/2016) T.0 (04/12/2016) His updated medication list for this problem includes: Simvastatin 40 Mg Tabs (Simvastatin) ..... One tab. 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 One tab. daily Thien Hardy MD Cardiology Follow up Thien azevedo MD Cardiology Follow up :will inufu si iron and cath to clear Thien Hardy MD Cardiology Follow up :will infus e before gb suregy Thien Hardy MD Cardiology Follow up :abnl nuc will discuss cath before elective gb Thien Hardy MD Cardiology Follow up :will add c hlorthalidone Thien Hardy MD Cardiology Follow up : L abs Reviewed: H gBA1c: 7.2 (10/29/2015) Creat: 1.13 (01/01/2013) Thien Hardy MD Cardiology Follow up :ON MONTHLY SHOTS Thien Hardy MD Cardiology:on rx Thien Styles Cardiology:no anemia so iv iron is optionsal but would do before major surgery Thien Hardy MD Cardiology: H is updated medication list for this problem includes: Simvastatin 40 Mg Tabs (Simvastatin) ..... One tab. daily C HOL: 143.0 (10/29/2015) LDL: 69.0 (?) (10/29/2015) HDL: 45.0 (10/29/2015) T.0 (10/29/2015) Thien Hardy MD Cardiology: H is updated medication list for this problem includes: Cozaar 50 Mg Tabs (Losartan potassium) ..... One tab. daily Aspirin Adult Low Dose 81 Mg Oral Tbec (Aspirin) ..... One tab by mouth daily Metformin Hcl 500 Mg Tabs (Metformin hcl) ..... 2 tabs twice daily Labs Reviewed: H gBA1c: 7.2 (10/29/2015) Creat: 1.13 (01/01/2013) Thien Hardy MD Cardiology:he may diaz ve restdenosis since this is abnroml where last stents wre place, but give severe gi sx needs endospcy S ummary 1 . Abnormal myocardial perfusion imaging after vasodilator stress with Regadenoson. 2 . Preserved left ventricular systolic function with a calculated ejection fraction of 67%. 3 . Myocardial scintigraphy demonstrates inferior-lateral wall ischemia. . ......................................................... .........Angela Parkinson MD January 04, 2016 5:04 PM Thien Hardy MD Cardiology:on rx Thien Styles Cardiology Thien Hardy MD Cardiology: H is updated medication list for this problem includes: Simvastatin 40 Mg Tabs (Simvastatin) ..... One tab. daily Thien Hardy MD Cardiology Thien Hardy MD Cardiology Thien Hardy MD Cardiology:will be 3 years since last stress soon H is updated medication list for this problem includes: Aspirin 81 Mg Tabs (Aspirin) ..... One tab. daily Thien Hardy MD Cardiology:better at home H is updated medication list for this problem includes: Cozaar 50 Mg Tabs (Losartan potassium) ..... One tab. daily Aspirin 81 Mg Tabs (Aspirin) ..... One tab. daily BP today: 164/80 P rior BP: 164/86 (10/15/2014) Labs Reviewed: C reat: 1.13 (01/01/2013) Thien Hardy MD Cardiology Thien Hardy MD Cardiology:nml ef Thien Hardy MD Cardiology Thien Hardy MD fu:always better at home 164/86 today Thien Hardy MD Hospital Follow up: H is updated medication list for this problem includes: Simvastatin 40 Mg Tabs (Simvastatin) ..... One tab. daily Thien Hardy MD Hospital Follow up Thien Hardy MD Hospital Follow up: H is updated medication list for this problem includes: Zantac 150 Mg Tabs (Ranitidine hcl) ..... 1 tablet by mouth twice daily Thien Hardy MD Hospital Follow up: H is updated medication list for this problem includes: Aspirin 81 Mg Tabs (Aspirin) ..... One tab. daily Thien Hardy MD Hospital Follow up: H is updated medication list for this problem includes: Simvastatin 40 Mg Tabs (Simvastatin) ..... One tab. daily Aspirin 81 Mg Tabs (Aspirin) ..... One tab. daily Thien Hardy MD Hospital Follow up Thien Hardy MD Hospital Follow up: H is updated medication list for this problem includes: Cozaar 50 Mg Tabs (Losartan potassium) ..... One tab. daily Aspirin 81 Mg Tabs (Aspirin) ..... One tab. daily Thien Hardy MD Hospital Follow up: H is updated medication list for this problem includes: Aspirin 81 Mg Tabs (Aspirin) ..... One tab. daily Thien Hardy MD Hospital Follow up: H is updated medication list for this problem includes: Aspirin 81 Mg Tabs (Aspirin) ..... One tab. daily Thien Hardy MD Hospital Follow up: H is updated medication list for this problem includes: Simvastatin 40 Mg Tabs (Simvastatin) ..... One tab. daily Aspirin 81 Mg Tabs (Aspirin) ..... One tab. daily Thien Hardy MD Hospital Follow up Thien Hardy MD JL4, AR1 AND CORAL AND ROOT AND C: H is updated medication list for this problem includes: Zantac 150 Mg Tabs (Ranitidine hcl) ..... 1 tablet by mouth twice daily BP today: / Prior BP: 149/92 (12/05/2012) D iscussed lifestyle modifications, diet, antacids/medications, and preventive measures. Handout provided. Thien Hardy MD JL4, AR1 AND CORAL AND ROOT AND RHC: H is updated medication list for this problem includes: Aspirin 81 Mg Tabs (Aspirin) ..... One tab. daily BP today: / Prior BP: 149/92 (12/05/2012) Nuclear Stress Findings: 1. Abnormal myocardial scintigraphy demonstrating a small partly reversible inferior wall defect consistent with ischemia 2 . Normal left ventricular size and function with a calculated ejection fraction of 63%. 3 . Normal Ryan protocol exercise tolerance test. - (12/17/2012) C ardiac Cath: Successful stent sandwich of the proximal dislodged stent between the proximal stent and the new stent. (12/28/2005) C ardiac Cath Comments: 3.5 x 15 Vision (12/28/2005) Thien Hardy MD JL4, AR1 AND CORAL AND ROOT AND RHC: H is updated medication list for this problem includes: Cozaar 50 Mg Tabs (Losartan potassium) ..... One tab. daily Aspirin 81 Mg Tabs (Aspirin) ..... One tab. daily Metformin Hcl 500 Mg Tabs (Metformin hcl) ..... Twice daily BP today: / Prior BP: 149/92 (12/05/2012) Thien Hardy MD JL4, AR1 AND CORAL AND ROOT AND RH C Thien Hardy MD JL4, AR1 AND CORAL AND ROOT AND RHC: H is updated medication list for this problem includes: Simvastatin 40 Mg Tabs (Simvastatin) ..... One tab. daily Aspirin 81 Mg Tabs (Aspirin) ..... One tab. daily BP today: / Prior BP: 149/92 (12/05/2012) N uclear Stress Findings: 1. Abnormal myocardial scintigraphy demonstrating a small partly reversible inferior wall defect consistent with ischemia 2 . Normal left ventricular size and function with a calculated ejection fraction of 63%. 3 . Normal Ryan protocol exercise tolerance test. - (12/17/2012) C ardiac Cath: Successful stent sandwich of the proximal dislodged stent between the proximal stent and the new stent. (12/28/2005) C ardiac Cath Comments: 3.5 x 15 Vision (12/28/2005) C arotid Doppler/Duplex: normal: (02/13/2006) Orders: C ardiac Cath - Left - GC (*) Thien Hardy MD JL4, AR1 AND CORAL AND ROOT AND RHC: O rders: C ardiac Cath - Left - GC (*) Thien Hardy MD JL4, AR1 AND CORAL AND ROOT AND RHC: H is updated medication list for this problem includes: Simvastatin 40 Mg Tabs (Simvastatin) ..... One tab. daily Aspirin 81 Mg Tabs (Aspirin) ..... One tab. daily BP today: / Prior BP: 149/92 (12/05/2012) N uclear Stress Findings: 1. Abnormal myocardial scintigraphy demonstrating a small partly reversible inferior wall defect consistent with ischemia 2 . Normal left ventricular size and function with a calculated ejection fraction of 63%. 3 . Normal Ryan protocol exercise tolerance test. - GC (12/17/2012) C ardiac Cath: Successful stent sandwich of the proximal dislodged stent between the proximal stent and the new stent. (12/28/2005) C ardiac Cath Comments: 3.5 x 15 Vision (12/28/2005) C arotid Doppler/Duplex: normal: (02/13/2006) Orders: C ardiac Cath - Left - GC (*) Thien Hardy MD JL4, AR1 AND CORAL AND ROOT AND RHC: O rders: C ardiac Cath - Left - GC (*) Thien Hardy MD JL4, AR1 AND CORAL AND ROOT AND RHC: H is updated medication list for this problem includes: Cozaar 50 Mg Tabs (Losartan potassium) ..... One tab. daily Aspirin 81 Mg Tabs (Aspirin) ..... One tab. daily Prior BP: 149/92 (12/05/2012) Orders: C ardiac Cath - Left - GC (*) Thien Hardy MD JL4, AR1 AND CORAL AND ROOT AND RHC: H is updated medication list for this problem includes: Cozaar 50 Mg Tabs (Losartan potassium) ..... One tab. daily BP today: / Prior BP: 149/92 (12/05/2012) N uclear Stress Findings: 1. Abnormal myocardial scintigraphy demonstrating a small partly reversible inferior wall defect consistent with ischemia 2 . Normal left ventricular size and function with a calculated ejection fraction of 63%. 3 . Normal Ryan protocol exercise tolerance test. - (12/17/2012) C ardiac Cath: Successful stent sandwich of the proximal dislodged stent between the proximal stent and the new stent. (12/28/2005) C ardiac Cath Comments: 3.5 x 15 Vision (12/28/2005) Orders: C ardiac Cath - Left - (*) Thien Hardy MD JL4, AR1 AND CORAL AND ROOT AND RHC: H is updated medication list for this problem includes: Aspirin 81 Mg Tabs (Aspirin) ..... One tab. daily BP today: / Prior BP: 149/92 (12/05/2012) Nuclear Stress Findings: 1. Abnormal myocardial scintigraphy demonstrating a small partly reversible inferior wall defect consistent with ischemia 2 . Normal left ventricular size and function with a calculated ejection fraction of 63%. 3 . Normal Ryan protocol exercise tolerance test. - (12/17/2012) C ardiac Cath: Successful stent sandwich of the proximal dislodged stent between the proximal stent and the new stent. (12/28/2005) C ardiac Cath Comments: 3.5 x 15 Vision (12/28/2005) Orders: Isiah ardiac Cath - Left - (*) Thien Hardy MD JL4, AR1 AND CORAL AND ROOT AND RHC: H is updated medication list for this problem includes: Cozaar 50 Mg Tabs (Losartan potassium) ..... One tab. daily BP today: / Prior BP: 149/92 (12/05/2012) N uclear Stress Findings: 1. Abnormal myocardial scintigraphy demonstrating a small partly reversible inferior wall defect consistent with ischemia 2 . Normal left ventricular size and function with a calculated ejection fraction of 63%. 3 . Normal Ryan protocol exercise tolerance test. - (12/17/2012) C ardiac Cath: Successful stent sandwich of the proximal dislodged stent between the proximal stent and the new stent. (12/28/2005) C ardiac Cath Comments: 3.5 x 15 Vision (12/28/2005) Orders: C ardiac Cath - Left - GC (*) Thien Hardy MD JL4, AR1 AND CORAL AND ROOT AND RHC: O rders: Isiah ardiac Cath - Left - GC (*) Thien Hardy MD JL4, AR1 AND CORAL AND ROOT AND RHC: H is updated medication list for this problem includes: Aspirin 81 Mg Tabs (Aspirin) ..... One tab. daily BP today: / Prior BP: 149/92 (12/05/2012) Nuclear Stress Findings: 1. Abnormal myocardial scintigraphy demonstrating a small partly reversible inferior wall defect consistent with ischemia 2 . Normal left ventricular size and function with a calculated ejection fraction of 63%. 3 . Normal Ryan protocol exercise tolerance test. - (12/17/2012) C ardiac Cath: Successful stent sandwich of the proximal dislodged stent between the proximal stent and the new stent. (12/28/2005) C ardiac Cath Comments: 3.5 x 15 Vision (12/28/2005) Orders: Isiah ardiac Cath - Left - GC (*) Thien Hardy MD routine : H is updated medication list for this problem includes: Aspirin 81 Mg Tabs (Aspirin) ..... One tab. daily BP today: / Prior BP: 161/86 (12/22/2010) N uclear Stress Findings: 1. Normal Ryan protocol exercise tolerance test. 2 . Normal left ventricular size and function with a calculated ejection fraction of 56%. 3 . Myocardial scintigraphy is normal without evidence for previous myocardial infarction or reversible ischemia. (02/18/2009) C ardiac Cath: Successful stent sandwich of the proximal dislodged stent between the proximal stent and the new stent. (12/28/2005) C ardiac Cath Comments: 3.5 x 15 Vision (12/28/2005) Thien Hardy MD routine Thien Hardy MD routine : H is updated medication list for this problem includes: Zantac 150 Mg Tabs (Ranitidine hcl) ..... 1 tablet by mouth twice daily BP today: / Prior BP: 161/86 (12/22/2010) Discussed lifestyle modifications, diet, antacids/medications, and preventive measures. Handout provided. Thien Hardy MD routine : B P today: / Prior BP: 161/86 (12/22/2010) N uclear Stress Findings: 1. Normal Ryan protocol exercise tolerance test. 2 . Normal left ventricular size and function with a calculated ejection fraction of 56%. 3 . Myocardial scintigraphy is normal without evidence for previous myocardial infarction or reversible ischemia. (02/18/2009) C ardiac Cath: Successful stent sandwich of the proximal dislodged stent between the proximal stent and the new stent. (12/28/2005) C ardiac Cath Comments: 3.5 x 15 Vision (12/28/2005) Orders: S TR - Nuclear ([id number]) C omplete Echo (CPT-44691) Thine Hardy MD routine : H is updated medication list for this problem includes: Cozaar 50 Mg Tabs (Losartan potassium) ..... One tab. daily BP today: / Prior BP: 161/86 (12/22/2010) N uclear Stress Findings: 1. Normal Ryan protocol exercise tolerance test. 2 . Normal left ventricular size and function with a calculated ejection fraction of 56%. 3 . Myocardial scintigraphy is normal without evidence for previous myocardial infarction or reversible ischemia. (02/18/2009) C ardiac Cath: Successful stent sandwich of the proximal dislodged stent between the proximal stent and the new stent. (12/28/2005) C ardiac Cath Comments: 3.5 x 15 Vision (12/28/2005) Orders: S TR - Nuclear ([id number]) C omplete Echo (CPT-06289) Thien Hardy MD routine : H is updated medication list for this problem includes: Cozaar 50 Mg Tabs (Losartan potassium) ..... One tab. daily Aspirin 81 Mg Tabs (Aspirin) ..... One tab. daily Metformin Hcl 500 Mg Tabs (Metformin hcl) ..... Twice daily BP today: / Prior BP: 161/86 (12/22/2010) Thien Hardy MD routine : H is updated medication list for this problem includes: Cozaar 50 Mg Tabs (Losartan potassium) ..... One tab. daily BP today: / Prior BP: 161/86 (12/22/2010) N uclear Stress Findings: 1. Normal Ryan protocol exercise tolerance test. 2 . Normal left ventricular size and function with a calculated ejection fraction of 56%. 3 . Myocardial scintigraphy is normal without evidence for previous myocardial infarction or reversible ischemia. (02/18/2009) C ardiac Cath: Successful stent sandwich of the proximal dislodged stent between the proximal stent and the new stent. (12/28/2005) C ardiac Cath Comments: 3.5 x 15 Vision (12/28/2005) Orders: S TR - Nuclear ([id number]) C omplete Echo (CPT-97231) Thien Hardy MD routine : H is updated medication list for this problem includes: Aspirin 81 Mg Tabs (Aspirin) ..... One tab. daily BP today: / Prior BP: 161/86 (12/22/2010) N uclear Stress Findings: 1. Normal Ryan protocol exercise tolerance test. 2 . Normal left ventricular size and function with a calculated ejection fraction of 56%. 3 . Myocardial scintigraphy is normal without evidence for previous myocardial infarction or reversible ischemia. (02/18/2009) C ardiac Cath: Successful stent sandwich of the proximal dislodged stent between the proximal stent and the new stent. (12/28/2005) C ardiac Cath Comments: 3.5 x 15 Vision (12/28/2005) Orders: S TR - Nuclear ([id number]) C omplete Echo (CPT-34027) Thien Hardy MD routine : H is updated medication list for this problem includes: Simvastatin 40 Mg Tabs (Simvastatin) ..... One tab. daily BP today: / Prior BP: 161/86 (12/22/2010) Thien Hardy MD routine Thien Hardy MD routine : H is updated medication list for this problem includes: Aspirin 81 Mg Tabs (Aspirin) ..... One tab. daily BP today: / Prior BP: 161/86 (12/22/2010) N uclear Stress Findings: 1. Normal Ryan protocol exercise tolerance test. 2 . Normal left ventricular size and function with a calculated ejection fraction of 56%. 3 . Myocardial scintigraphy is normal without evidence for previous myocardial infarction or reversible ischemia. (02/18/2009) C ardiac Cath: Successful stent sandwich of the proximal dislodged stent between the proximal stent and the new stent. (12/28/2005) C ardiac Cath Comments: 3.5 x 15 Vision (12/28/2005) Orders: E KG (CPT-23452) S TR - Nuclear ([id number]) C omplete Echo (CPT-98876) Thien Hardy MD routine : O rders: S TR - Nuclear ([id number]) C omplete Echo (CPT-77247) Thien Hardy MD routine : H is updated medication list for this problem includes: Simvastatin 40 Mg Tabs (Simvastatin) ..... One tab. daily Aspirin 81 Mg Tabs (Aspirin) ..... One tab. daily BP today: / Prior BP: 161/86 (12/22/2010) N uclear Stress Findings: 1. Normal Ryan protocol exercise tolerance test. 2 . Normal left ventricular size and function with a calculated ejection fraction of 56%. 3 . Myocardial scintigraphy is normal without evidence for previous myocardial infarction or reversible ischemia. (02/18/2009) C ardiac Cath: Successful stent sandwich of the proximal dislodged stent between the proximal stent and the new stent. (12/28/2005) C ardiac Cath Comments: 3.5 x 15 Vision (12/28/2005) C arotid Doppler/Duplex: normal: (02/13/2006) Orders: S TR - Nuclear ([id number]) C omplete Echo (CPT-38960) Thien Hardy MD routine : H is updated medication list for this problem includes: Simvastatin 40 Mg Tabs (Simvastatin) ..... One tab. daily Aspirin 81 Mg Tabs (Aspirin) ..... One tab. daily BP today: / Prior BP: 161/86 (12/22/2010) N uclear Stress Findings: 1. Normal Ryan protocol exercise tolerance test. 2 . Normal left ventricular size and function with a calculated ejection fraction of 56%. 3 . Myocardial scintigraphy is normal without evidence for previous myocardial infarction or reversible ischemia. (02/18/2009) C ardiac Cath: Successful stent sandwich of the proximal dislodged stent between the proximal stent and the new stent. (12/28/2005) C ardiac Cath Comments: 3.5 x 15 Vision (12/28/2005) C arotid Doppler/Duplex: normal: (02/13/2006) Orders: S TR - Nuclear ([id number]) C omplete Echo (CPT-92466) Thien Hardy MD routine : H is updated medication list for this problem includes: Cozaar 50 Mg Tabs (Losartan potassium) ..... One tab. daily Aspirin 81 Mg Tabs (Aspirin) ..... One tab. daily Prior BP: 161/86 (12/22/2010) Orders: S TR - Nuclear ([id number]) C omplete Echo (CPT-99513) Thien Hardy MD routine: H is updated medication list for this problem includes: Zantac 150 Mg Tabs (Ranitidine hcl) ..... 1 tablet by mouth twice daily Thien Hardy MD routine: H is updated medication list for this problem includes: Cozaar 50 Mg Tabs (Losartan potassium) ..... One tab. daily BP today: / Prior BP: 143/78 (01/13/2010) E chocardiogram: TDS. Normal LV size. Normal LV wall thickness. E to A ratio is c onsistent with restrictive physiology. Normal E/E` 5.0. LVEF 50%. M ild MR. Both MVL are thickened (sclerotic). Trace to mild AR. AV sclerosis. Mild TR. RVSP is wnls. The RA pressure is estimated at 17 mmHg. PASP is 24 mmHg. IVC is normal in size. Normal pericardium with no significant pericardial effusion. Normal aortic root. (02/18/2009) N uclear Stress Findings: 1. Normal Ryan protocol exercise tolerance test. 2 . Normal left ventricular size and function with a calculated ejection fraction of 56%. 3 . Myocardial scintigraphy is normal without evidence for previous myocardial infarction or reversible ischemia. (02/18/2009) C ardiac Cath: Successful stent sandwich of the proximal dislodged stent between the proximal stent and the new stent. (12/28/2005) C ardiac Cath Comments: 3.5 x 15 Vision (12/28/2005) Thien Hardy MD routine: H is updated medication list for this problem includes: Cozaar 50 Mg Tabs (Losartan potassium) ..... One tab. daily Aspirin 81 Mg Tabs (Aspirin) ..... One tab. daily Metformin Hcl 500 Mg Tabs (Metformin hcl) ..... Twice daily BP today: / Prior BP: 143/78 (01/13/2010) Thien Hardy MD routine: H is updated medication list for this problem includes: Cozaar 50 Mg Tabs (Losartan potassium) ..... One tab. daily Aspirin 81 Mg Tabs (Aspirin) ..... One tab. daily Prior BP: 143/78 (01/13/2010) Thien Hardy MD routine: H is updated medication list for this problem includes: Aspirin 81 Mg Tabs (Aspirin) ..... One tab. daily BP today: / Prior BP: 143/78 (01/13/2010) N uclear Stress Findings: 1. Normal Ryan protocol exercise tolerance test. 2 . Normal left ventricular size and function with a calculated ejection fraction of 56%. 3 . Myocardial scintigraphy is normal without evidence for previous myocardial infarction or reversible ischemia. (02/18/2009) E chocardiogram: TDS. Normal LV size. Normal LV wall thickness. E to A ratio is c onsistent with restrictive physiology. Normal E/E` 5.0. LVEF 50%. M ild MR. Both MVL are thickened (sclerotic). Trace to mild AR. AV sclerosis. Mild TR. RVSP is wnls. The RA pressure is estimated at 17 mmHg. PASP is 24 mmHg. IVC is normal in size. Normal pericardium with no significant pericardial effusion. Normal aortic root. (02/18/2009) C ardiac Cath: Successful stent sandwich of the proximal dislodged stent between the proximal stent and the new stent. (12/28/2005) C ardiac Cath Comments: 3.5 x 15 Vision (12/28/2005) Orders: C omplete Echo (CPT-[id number]) Thien Hardy MD routine: H is updated medication list for this problem includes: Simvastatin 40 Mg Tabs (Simvastatin) ..... One tab. daily BP today: / Prior BP: 143/78 (01/13/2010) Orders: C omplete Echo (CPT-[id number]) Thien Hardy MD routine: B P today: / Prior BP: 143/78 (01/13/2010) E chocardiogram: TDS. Normal LV size. Normal LV wall thickness. E to A ratio is c onsistent with restrictive physiology. Normal E/E` 5.0. LVEF 50%. M ild MR. Both MVL are thickened (sclerotic). Trace to mild AR. AV sclerosis. Mild TR. RVSP is wnls. The RA pressure is estimated at 17 mmHg. PASP is 24 mmHg. IVC is normal in size. Normal pericardium with no significant pericardial effusion. Normal aortic root. (02/18/2009) N uclear Stress Findings: 1. Normal Ryan protocol exercise tolerance test. 2 . Normal left ventricular size and function with a calculated ejection fraction of 56%. 3 . Myocardial scintigraphy is normal without evidence for previous myocardial infarction or reversible ischemia. G C (02/18/2009) C ardiac Cath: Successful stent sandwich of the proximal dislodged stent between the proximal stent and the new stent. (12/28/2005) C ardiac Cath Comments: 3.5 x 15 Vision (12/28/2005) Thien Hardy MD routine: O rders: Isiah omplete Echo (CPT-[id number]) Thien Hardy MD routine: H is updated medication list for this problem includes: Simvastatin 40 Mg Tabs (Simvastatin) ..... One tab. daily Aspirin 81 Mg Tabs (Aspirin) ..... One tab. daily BP today: / Prior BP: 143/78 (01/13/2010) N uclear Stress Findings: 1. Normal Ryan protocol exercise tolerance test. 2 . Normal left ventricular size and function with a calculated ejection fraction of 56%. 3 . Myocardial scintigraphy is normal without evidence for previous myocardial infarction or reversible ischemia. (02/18/2009) C ardiac Cath: Successful stent sandwich of the proximal dislodged stent between the proximal stent and the new stent. (12/28/2005) C ardiac Cath Comments: 3.5 x 15 Vision (12/28/2005) C arotid Doppler/Duplex: normal: (02/13/2006) Orders: C omplete Echo (CPT-[id number]) Thien Hardy MD routine: O rders: C omplete Echo ([id number]) Thien Hardy MD routine: H is updated medication list for this problem includes: Simvastatin 40 Mg Tabs (Simvastatin) ..... One tab. daily Aspirin 81 Mg Tabs (Aspirin) ..... One tab. daily BP today: / Prior BP: 143/78 (01/13/2010) N uclear Stress Findings: 1. Normal Ryan protocol exercise tolerance test. 2 . Normal left ventricular size and function with a calculated ejection fraction of 56%. 3 . Myocardial scintigraphy is normal without evidence for previous myocardial infarction or reversible ischemia. (02/18/2009) C ardiac Cath: Successful stent sandwich of the proximal dislodged stent between the proximal stent and the new stent. (12/28/2005) C ardiac Cath Comments: 3.5 x 15 Vision (12/28/2005) C arotid Doppler/Duplex: normal: (02/13/2006) Orders: E KG (CPT-[id number]) C omplete Echo (CPT-[id number]) Thien Hardy MD routine: H is updated medication list for this problem includes: Aspirin 81 Mg Tabs (Aspirin) ..... One tab. daily BP today: / Prior BP: 143/78 (01/13/2010) N uclear Stress Findings: 1. Normal Ryan protocol exercise tolerance test. 2 . Normal left ventricular size and function with a calculated ejection fraction of 56%. 3 . Myocardial scintigraphy is normal without evidence for previous myocardial infarction or reversible ischemia. (02/18/2009) E chocardiogram: TDS. Normal LV size. Normal LV wall thickness. E to A ratio is c onsistent with restrictive physiology. Normal E/E` 5.0. LVEF 50%. M ild MR. Both MVL are thickened (sclerotic). Trace to mild AR. AV sclerosis. Mild TR. RVSP is wnls. The RA pressure is estimated at 17 mmHg. PASP is 24 mmHg. IVC is normal in size. Normal pericardium with no significant pericardial effusion. Normal aortic root. (02/18/2009) C ardiac Cath: Successful stent sandwich of the proximal dislodged stent between the proximal stent and the new stent. (12/28/2005) C ardiac Cath Comments: 3.5 x 15 Vision (12/28/2005) Thien Hardy MD follow up: H is updated medication list for this problem includes: Aspirin 81 Mg Tabs (Aspirin) ..... One tab. daily Orders: S pirometry (CPT-70107) X -Ray, Chest, PA & Lateral (CPT-40385) V enous Doppler Bilateral LE - Standing (CPT-56447) Thien Hardy MD follow up: H is updated medication list for this problem includes: Cozaar 50 Mg Tabs (Losartan potassium) ..... One tab. daily instead of lisinopril Thien Hardy MD follow up: H is updated medication list for this problem includes: Cozaar 50 Mg Tabs (Losartan potassium) ..... One tab. daily instead of lisinopril Thien Hardy MD follow up Thien Hardy MD follow up: H is updated medication list for this problem includes: Cozaar 50 Mg Tabs (Losartan potassium) ..... One tab. daily instead of lisinopril Aspirin 81 Mg Tabs (Aspirin) ..... One tab. daily Metformin Hcl 500 Mg Tabs (Metformin hcl) ..... Twice daily BP today: 143/78 Prior BP: 134/79 (01/14/2009) Orders: S pirometry (CPT-00816) X -Ray, Chest, PA & Lateral (CPT-00652) Thien Hardy MD follow up: O rders: S pirometry (CPT-24013) X -Ray, Chest, PA & Lateral (CPT-98749) V enous Doppler Bilateral LE - Standing (CPT-93207) Thien Hardy MD follow up: H is updated medication list for this problem includes: Simvastatin 40 Mg Tabs (Simvastatin) ..... One tab. daily Aspirin 81 Mg Tabs (Aspirin) ..... One tab. daily BP today: 143/78 Prior BP: 134/79 (01/14/2009) N uclear Stress Findings: 1. Normal Ryan protocol exercise tolerance test. 2 . Normal left ventricular size and function with a calculated ejection fraction of 56%. 3 . Myocardial scintigraphy is normal without evidence for previous myocardial infarction or reversible ischemia. GC (02/18/2009) C ardiac Cath: Successful stent sandwich of the proximal dislodged stent between the proximal stent and the new stent. (12/28/2005) C ardiac Cath Comments: 3.5 x 15 Vision (12/28/2005) C arotid Doppler/Duplex: normal: (02/13/2006) O rders: S pirometry (CPT-59114) X -Ray, Chest, PA & Lateral (CPT-62435) V enous Doppler Bilateral LE - Standing (CPT-33946) Thien Hardy MD follow up: H is updated medication list for this problem includes: Cozaar 50 Mg Tabs (Losartan potassium) ..... One tab. daily instead of lisinopril Aspirin 81 Mg Tabs (Aspirin) ..... One tab. daily BP today: 143/78 P rior BP: 134/79 (01/14/2009) Orders: S pirometry (CPT-10129) X -Ray, Chest, PA & Lateral (CPT-38051) V enous Doppler Bilateral LE - Standing (CPT-78948) Thien Hardy MD follow up: H is updated medication list for this problem includes: Simvastatin 40 Mg Tabs (Simvastatin) ..... One tab. daily BP today: 143/78 Prior BP: 134/79 (01/14/2009) Orders: S pirometry (CPT-36681) X -Ray, Chest, PA & Lateral (CPT-02006) V enous Doppler Bilateral LE - Standing (CPT-65705) Thien Hardy MD follow up: H is updated medication list for this problem includes: Aspirin 81 Mg Tabs (Aspirin) ..... One tab. daily Orders: E KG (CPT-38783) S pirometry (CPT-75025) X -Ray, Chest, PA & Lateral (CPT-58986) V enous Doppler Bilateral LE - Standing (CPT-97829) BP today: 143/78 Prior BP: 134/79 (01/14/2009) N uclear Stress Findings: 1. Normal Ryan protocol exercise tolerance test. 2 . Normal left ventricular size and function with a calculated ejection fraction of 56%. 3 . Myocardial scintigraphy is normal without evidence for previous myocardial infarction or reversible ischemia. (02/18/2009) E chocardiogram: TDS. Normal LV size. Normal LV wall thickness. E to A ratio is c onsistent with restrictive physiology. Normal E/E` 5.0. LVEF 50%. M ild MR. Both MVL are thickened (sclerotic). Trace to mild AR. AV sclerosis. Mild TR. RVSP is wnls. The RA pressure is estimated at 17 mmHg. PASP is 24 mmHg. IVC is normal in size. Normal pericardium with no significant pericardial effusion. Normal aortic root. (02/18/2009) C ardiac Cath: Successful stent sandwich of the proximal dislodged stent between the proximal stent and the new stent. (12/28/2005) C ardiac Cath Comments: 3.5 x 15 Vision (12/28/2005) Thien Hardy MD follow up: H is updated medication list for this problem includes: Aspirin 81 Mg Tabs (Aspirin) ..... One tab. daily BP today: 143/78 Prior BP: 134/79 (01/14/2009) N uclear Stress Findings: 1. Normal Ryan protocol exercise tolerance test. 2 . Normal left ventricular size and function with a calculated ejection fraction of 56%. 3 . Myocardial scintigraphy is normal without evidence for previous myocardial infarction or reversible ischemia. (02/18/2009) E chocardiogram: TDS. Normal LV size. Normal LV wall thickness. E to A ratio is c onsistent with restrictive physiology. Normal E/E` 5.0. LVEF 50%. M ild MR. Both MVL are thickened (sclerotic). Trace to mild AR. AV sclerosis. Mild TR. RVSP is wnls. The RA pressure is estimated at 17 mmHg. PASP is 24 mmHg. IVC is normal in size. Normal pericardium with no significant pericardial effusion. Normal aortic root. (02/18/2009) C ardiac Cath: Successful stent sandwich of the proximal dislodged stent between the proximal stent and the new stent. (12/28/2005) C ardiac Cath Comments: 3.5 x 15 Vision (12/28/2005) Orders: S pirometry (CPT-14059) X -Ray, Chest, PA & Lateral (CPT-00061) V enous Doppler Bilateral LE - Standing (CPT-77876) Thien Hardy MD follow up: H is updated medication list for this problem includes: Cozaar 50 Mg Tabs (Losartan potassium) ..... One tab. daily instead of lisinopril BP today: 143/78 Prior BP: 134/79 (01/14/2009) E chocardiogram: TDS. Normal LV size. Normal LV wall thickness. E to A ratio is c onsistent with restrictive physiology. Normal E/E` 5.0. LVEF 50%. M ild MR. Both MVL are thickened (sclerotic). Trace to mild AR. AV sclerosis. Mild TR. RVSP is wnls. The RA pressure is estimated at 17 mmHg. PASP is 24 mmHg. IVC is normal in size. Normal pericardium with no significant pericardial effusion. Normal aortic root. (02/18/2009) N uclear Stress Findings: 1. Normal Ryan protocol exercise tolerance test. 2 . Normal left ventricular size and function with a calculated ejection fraction of 56%. 3 . Myocardial scintigraphy is normal without evidence for previous myocardial infarction or reversible ischemia. (02/18/2009) C ardiac Cath: Successful stent sandwich of the proximal dislodged stent between the proximal stent and the new stent. (12/28/2005) C ardiac Cath Comments: 3.5 x 15 Vision (12/28/2005) Orders: S pirometry (CPT-34754) X -Ray, Chest, PA & Lateral (CPT-10552) V enous Doppler Bilateral LE - Standing (CPT-09530) Thien Hardy MD follow up: O rders: S pirometry (CPT-99491) X -Ray, Chest, PA & Lateral (CPT-04228) V enous Doppler Bilateral LE - Standing (CPT-10439) Thien Hardy MD follow up: H is updated medication list for this problem includes: Simvastatin 40 Mg Tabs (Simvastatin) ..... One tab. daily Aspirin 81 Mg Tabs (Aspirin) ..... One tab. daily BP today: 143/78 Prior BP: 134/79 (01/14/2009) N uclear Stress Findings: 1. Normal Ryan protocol exercise tolerance test. 2 . Normal left ventricular size and function with a calculated ejection fraction of 56%. 3 . Myocardial scintigraphy is normal without evidence for previous myocardial infarction or reversible ischemia. GC (02/18/2009) C ardiac Cath: Successful stent sandwich of the proximal dislodged stent between the proximal stent and the new stent. (12/28/2005) C ardiac Cath Comments: 3.5 x 15 Vision (12/28/2005) C arotid Doppler/Duplex: normal: (02/13/2006) O rders: S pirometry (CPT-06150) X -Ray, Chest, PA & Lateral (CPT-87425) V enous Doppler Bilateral LE - Standing (CPT-93778) Thien Hardy MD stable cad and htn: H is updated medication list for this problem includes: Zestril 20 Mg Tabs (Lisinopril) ..... One tab. daily instead of procardia to lower bp Aspirin 81 Mg Tabs (Aspirin) ..... One tab. daily Metformin Hcl 500 Mg Tabs (Metformin hcl) ..... Twice daily BP today: 134/79 Prior BP: 155/79 (01/16/2008) Thien Hardy MD stable cad and htn Thien Hardy MD stable cad and htn: H is updated medication list for this problem includes: Zestril 20 Mg Tabs (Lisinopril) ..... One tab. daily instead of procardia to lower bp Simvastatin 40 Mg Tabs (Simvastatin) ..... One tab. daily Aspirin 81 Mg Tabs (Aspirin) ..... One tab. daily Thien Hardy MD stable cad and htn: H is updated medication list for this problem includes: Zestril 20 Mg Tabs (Lisinopril) ..... One tab. daily instead of procardia to lower bp Simvastatin 40 Mg Tabs (Simvastatin) ..... One tab. daily Aspirin 81 Mg Tabs (Aspirin) ..... One tab. daily BP today: 134/79 Prior BP: 155/79 (01/16/2008) C ardiac Cath: Successful stent sandwich of the proximal dislodged stent between the proximal stent and the new stent. (12/28/2005) C ardiac Cath Comments: 3.5 x 15 Vision (12/28/2005) C arotid Doppler/Duplex: normal: (02/13/2006) Orders: E KG (CPT-79334) Thien Hardy MD stable cad and htn: H is updated medication list for this problem includes: Zestril 20 Mg Tabs (Lisinopril) ..... One tab. daily instead of procardia to lower bp Aspirin 81 Mg Tabs (Aspirin) ..... One tab. daily BP today: 134/79 P rior BP: 155/79 (01/16/2008) Thien Hardy MD stable cad and htn: H is updated medication list for this problem includes: Simvastatin 40 Mg Tabs (Simvastatin) ..... One tab. daily BP today: 134/79 Prior BP: 155/79 (01/16/2008) Thien Hardy MD office visit: H is updated medication list for this problem includes: Zestril 20 Mg Tabs (Lisinopril) ..... One tab. daily instead of procardia to lower bp Aspirin 81 Mg Tabs (Aspirin) ..... One tab. daily BP today: 155/79 Prior BP: / () E chocardiogram: Normal LV systolic function with an EF of 50%. Mild MR. Trace AI. Mild TR. (01/24/2006) C ardiac Cath: Successful stent sandwich of the proximal dislodged stent between the proximal stent and the new stent. (12/28/2005) C ardiac Cath Comments: 3.5 x 15 Vision (12/28/2005) Thien Hardy MD office visit hTien Hardy MD office visit: H is updated medication list for this problem includes: Zocor 80 Mg Tabs (Simvastatin) ..... One tab. at bedtime (higher dose to lowe cholesterol more) BP today: 155/79 Prior BP: / () Thien Hardy MD office visit: H is updated medication list for this problem includes: Zestril 20 Mg Tabs (Lisinopril) ..... One tab. daily instead of procardia to lower bp Zocor 80 Mg Tabs (Simvastatin) ..... One tab. at bedtime (higher dose to lowe cholesterol more) Aspirin 81 Mg Tabs (Aspirin) ..... One tab. daily BP today: 155/79 Prior BP: / () C ardiac Cath: Successful stent sandwich of the proximal dislodged stent between the proximal stent and the new stent. (12/28/2005) C ardiac Cath Comments: 3.5 x 15 Vision (12/28/2005) C arotid Doppler/Duplex: normal: (02/13/2006) Thien Hardy MD office visit: H is updated medication list for this problem includes: Zestril 20 Mg Tabs (Lisinopril) ..... One tab. daily instead of procardia to lower bp Zocor 80 Mg Tabs (Simvastatin) ..... One tab. at bedtime (higher dose to lowe cholesterol more) Aspirin 81 Mg Tabs (Aspirin) ..... One tab. daily BP today: 155/79 Prior BP: / () C ardiac Cath: Successful stent sandwich of the proximal dislodged stent between the proximal stent and the new stent. (12/28/2005) C ardiac Cath Comments: 3.5 x 15 Vision (12/28/2005) C arotid Doppler/Duplex: normal: (02/13/2006) Orders: E KG (CPT-11133) Thien Hardy MD office visit: H is updated medication list for this problem includes: Zestril 20 Mg Tabs (Lisinopril) ..... One tab. daily instead of procardia to lower bp Aspirin 81 Mg Tabs (Aspirin) ..... One tab. daily BP today: 155/79 Orders: C omplete Echo (CPT-72479) Thien Hardy MD Date Name Carotid Duplex Bilat eral Carotid Duplex Bilat eral MRI, Brain X-Ray, Cervical Spin e Complete Echo CXR- PA/Lat DLCO - 45009 FRC - 78045 FVC - 53438 Complete Echo Complete Echo ZIO Holter Complete Echo CBC (INCLUDES DIFF/P LT) BASIC METABOLIC PANE L W/EGFR PROBNP, N TERMINAL IRON AND TOTAL IRON BINDING CAPACITY FERRITIN Complete Echo Renal Artery Duplex Kidney Ultrasound BASIC METABOLIC PANE L W/EGFR Cardiac Cath - Left - [facility] LIPID PANEL Complete Echo VITAMIN D, 25-HYDROX Y, LC/MS/MS HEMOGLOBIN A1c VITAMIN B12 PARTIAL THROMBOPLAST IN TIME, ACTIVATED PROTHROMBIN TIME WIT H INR COMPREHENSIVE METABO LIC PANEL W/EGFR CBC (INCLUDES DIFF/P LT) CBC (H/H, RBC, INDIC ES, WBC, PLT) COMPREHENSIVE METABO LIC PANEL W/EGFR STR - Nuclear VITAMIN D, 25-HYDROX Y, LC/MS/MS HEMOGLOBIN A1c VITAMIN B12 RETICULOCYTE COUNT IRON AND TOTAL IRON BINDING CAPACITY FOLATE, SERUM FERRITIN CBC (INCLUDES DIFF/P LT) LIPID PANEL Complete Echo Complete Echo Cardiac Cath - L/R - GC Complete Echo STR - Nuclear Complete Echo Venous Doppler Bilat eral LE - Standing X-Ray, Chest, PA & L ateral Spirometry Stress Test - Nuclea r Complete Echo Complete Echo HISTORY OF PROCEDURES Procedure Date Procedure Name Provider Procedure Notes S tatus Complex e/m visit add on Nickie Serrato MD completed EKG Sven Posey MD complete d Complex e/m visit add on Nickie Serrato MD completed Spirometry Nickie Serrato MD completed FVC / MVV with bronchodilator - 84620 Nickie Serrato MD completed BLOOD COUNT HEMOGLOBIN Nickie Serrato MD completed FRC - 88515 Nickie Serrato MD complete d SpO2 w/o 6min walk/titration Nickie Serrato MD completed SVC - 29414 Nickie Serrato MD complete d DLCO - 47321 Nickie Serrato MD complet ed EKG Nickie Serrato MD completed EKG Nickie Serrato MD completed EKG Nickie Serrato MD completed EKG Nickie Serrato MD [facility] co mpleted EKG Nickie Serrato MD completed SNOMED-CT: 675943071 488328 Current Medications Documented Nickie Serrato MD completed SNOMED-CT: 493671621 116721 Current Medications Documented Thien aHrdy MD completed EKG Thien Hardy MD complete d SNOMED-CT: 486113404 401134 Current Medications Documented Thien Hardy MD completed SNOMED-CT: 492484690 474751 Current Medications Documented Thien Hardy MD completed Stress EKG Sven Posey MD complete d Regadenoson, 4 units Thien Hardy MD completed Cardiolite, 2 units Thien Hardy MD completed SPECT Images Angela Parkinson MD completed SNOMED-CT: 29191346 Physical Exam, Performed: Pulse Exam of Foot Thien Hardy MD completed BERTIN Hardy MD complete d SNOMED-CT: 656425629 474449 Current Medications Documented Thien Hardy MD completed BERTIN Hardy MD complete d Lipid Strip Thien Hardy MD complet ed EKKeagan Hardy MD complete d REGGIEG Thien Hardy MD complete d BERTIN Hardy MD complete d BERTIN Hardy MD complete d EKKeagan Hardy MD complete d
--- OUTSIDE RECORDS SUMMARY | 2024-06-02 08:35 | XMS_ITS ---
Author Organization [facility] Address [address] [place] [address] Care Team Providers Care Blasting Machine Operator Name Role Phone Rojelio David Unavailable [phone] MEDICATIONS Medication SIG (Take, Route, Frequency, Duration) Notes Start Date End Date Status Losartan Potassium 100 MG 1 tablet Orall y Once a day Active Pantoprazole Sodium 40 MG 1 tablet Orall y Once a day Active glipiZIDE 10 MG 1 tablet 30 minutes before breakfast Orally Once a day Active Januvia 100 MG 1 tablet Orally Once a day Active Eliquis 2.5 MG as directed Orally Active Calcitriol 0.25 MCG 1 capsule Orally Onc e a day for 90 day(s) 08/25/2022 05/22/2023 Active Calcitriol 0.25 MCG 1 capsule Once a day for 90 days Active Ergocalciferol 1.25 MG (36203 UT) 1 capsule Orally Once a week for 90 days 08/12/2023 Active Farxiga 10 MG 1 tablet Orally Once a day for 90 08/25/2022 05/22/2023 Active Simvastatin 40 MG 1 tablet in the even ing Orally Once a day Active Carvedilol 25 MG 1 tablet with food Orally Twice a day Active Encounters Encounter Location Date Provider Diagnosis [place] [facility] [address] [facility] [address] [place] [address] 12/22/2022 David Serrato Chronic kidney disea se, stage 3a N18.31 ; Essential hypertension I10 ; Renal osteodystrophy N25.0 ; Secondary hyperparathyroidism, not elsewhere classified E21.1 ; Unspecified atrial fibrillation I48.91 and Heart failure, unspecified I50.9 ASSESSMENTS Encounter Date Diagnosis Assessment Notes Treatment Notes Treatment Clinical Notes Section Notes 12/22/2022 Chronic kidney disease, stage 3a (ICD-10 - N18.31) 12/22/2022 Essential hypertension (ICD-10 - I10) 12/22/2022 Renal osteodystrophy (ICD-10 - N25.0) 12/22/2022 Secondary hyperparathyroidism , not elsewhere classified (ICD-10 - E21.1) 12/22/2022 Unspecified atrial fibrillation (ICD-10 - I48.91) 12/22/2022 Heart failure, unspecified (ICD-10 - I50.9) PLAN OF TREATMENT No Information Progress Notes * ZEHRA ALVAREZOB:1935 (88 yo M)Acc No.[id number]:12/22/2022 Progress Notes Patient: RICK ALVAREZ Provider: MD JET, F.A.C.P, F.A.S.N. :1935 Age:87 Y Sex:Male Date:12/22/2022 Address:[address] [place] [address] Subjective: * Chief Complaints: * * Medical History: * Medications: Taking Simvastatin 40 MG Tablet 1 tablet in the evening Orally Once a day , Taking Pantoprazole Sodium 40 MG Tablet Delayed Release 1 tablet Orally Once a day , Taking Losartan Potassium 100 MG Tablet 1 tablet Orally Once a day , Taking Januvia 100 MG Tablet 1 tablet Orally Once a day , Taking glipiZIDE 10 MG Tablet 1 tablet 30 minutes before breakfast Orally Once a day , Taking Eliquis 2.5 MG Tablet as directed Orally , Taking Carvedilol 25 MG Tablet 1 tablet with food Orally Twice a day , Taking Calcitriol 0.25 MCG Capsule 1 capsule Once a day , Taking Calcitriol 0.25 MCG Capsule 1 capsule Orally Once a day , stop date 05/22/2023, Taking Farxiga 10 MG Tablet 1 tablet Orally Once a day , stop date 05/22/2023, Taking Ergocalciferol 1.25 MG (53905 UT) Capsule 1 capsule Orally Once a week , stop date 08/12/2023 Objective: Assessment: * Assessment: 1. Chronic kidney disease, stage 3a - N18.31 2. Essential hypertension - I10 3. Renal osteodystrophy - N25.0 4. Secondary hyperparathyroidism, not elsewhere classified - E21.1 5. Unspecified atrial fibrillation - I48.91 6. Heart failure, unspecified - I50.9 Plan: * Treatment: * Billing Information: * Visit Code: 45885 Office Visit, Est Pt., Level 4. * Procedure Codes: * Sign off status: Pending * Provider: MD JET, F.A.C.P, F.A.S.N. Date: 12/22/2022
--- OUTSIDE RECORDS SUMMARY | 2024-06-02 08:35 | XMS_ITS | Clinical Summary ---
Author Organization [facility] Facility Address [address] [place] [address] Care Team Providers Care Operations Systems Specialist Name Role Phone Victor M Hill MD Primary Care Provider [phone] Medications magnesium oxide (MAG-OX) 400 MG tablet Take 1 tablet (400 mg total) by mouth in the morning and 1 tablet (400 mg total) in the evening. 180 tablet 1 07/31/2023 Active amLODIPine (NORVASC) 5 MG tablet Take 1 tablet (5 mg total) by mouth every night 90 tablet 1 02/05/2024 Active Social History Tobacco Use Types Packs/Day Years Used Date Smoking Tobacco: Never Assessed Sex and Gender Information Value Date Recorded Sex Assigned at Not on file Legal Sex Male 11:35 AM EDT Gender Identity Not on file Sexual Orientation Not on file Last Filed Vital Signs Vital Sign Reading Time Taken Comments Blood Pressure 120/70 02/05/2024 1:14 PM CHIEF ORDER DISPATCHER Pulse 72 02/05/2024 1:14 PM CHIEF ORDER DISPATCHER Temperature 36.1 C (97 F) 02/05/2024 1:14 PM CHIEF ORDER DISPATCHER Respiratory Rate 18 02/05/2024 1:14 PM CHIEF ORDER DISPATCHER Oxygen Saturation 99% 02/05/2024 1:14 PM CHIEF ORDER DISPATCHER Inhaled Oxygen Concentration - - Weight 68.6 kg (151 lb 3.2 oz) 02/05/2024 1:14 P M CHIEF ORDER DISPATCHER Height - - Body Mass Index - - Plan of Treatment Upcoming Encounters Date Type Department Care Team (Late st Contact Info) Description 06/10/2024 1:00 PM CDT Office Visit [facility], [facility] [address] [place] [address] Chi Holland DO [address] [place] [address] Health Maintenance Due Date Last Done Comments Pneumococcal Vaccine: 65+ Ye ars (1 of 2 - PCV) 10/28/1941 Diabetes: Ophthalmology Exam 03/06/2023 Diabetes: Pedal Pulse Checked 03/06/2023 Diabetes: Sensory Foot Exam 03/06/2023 Diabetes: Visual Foot Exam 03/06/2023 Diabetes: Hemoglobin A1C 04/14/2023 01/12/2023 Influenza Vaccine (#1) 2023 Hepatitis B Vaccine Aged Out No longe r eligible based on patient's age to complete this topic Insurance [facility] MEDICARE Advance Directives Documents on File Type Date Recorded Patient Tanning Solution Maker Expl anation Advance Care Planning 03/09/2023 1:22 PM Care Teams Operations Systems Specialist Relationship Specialty Start Date End Date Victor M Hill MD [facility] [place] [address] PCP - General Internal Medicine 12/25/22
--- OUTSIDE RECORDS SUMMARY | 2024-06-02 08:35 | XMS_ITS | Patient Health Record ---
Author Organization [facility] Address [address] [facility] [address] [place] [address] Support Name Relationship Address Phone RICK ALVAREZ Guarantor Unknown [phone] REASON FOR REFERRAL No Information MEDICATIONS Medication SIG (Take, Route, Frequency, Duration) Notes Start Date End Date Status Losartan Potassium 100 MG 1 tablet Orally Once a day Active Pantoprazole Sodium 40 MG 1 tablet Orally Once a day Active glipiZIDE 10 MG 1 tablet 30 minutes before breakfast Orally Once a day Active Januvia 100 MG 1 tablet Orally Once a day Active Carvedilol 25 MG 1 tablet with food O rally Twice a day Active Eliquis 2.5 MG as directed Orally Active Calcitriol 0.25 MCG 1 capsule Once a day for 90 days Active Simvastatin 40 MG 1 tablet in the even ing Orally Once a day Active PROBLEMS Problem Type ICD Code Onset Dates Problem Status W/U Status Risk SNOMED Code Notes Problem Secondary hyperparathyroid ism, not elsewhere classified (E21.1) Active confirmed Secondary hyperparathyroidism (80510601) Problem Unspecified atrial fibrillation (I48.91) Active confirmed Atrial fibrilla tion (45076583) Problem Heart failure, unspecified (I50.9) Active confirmed Heart failure (00850884) Problem Renal osteodystrophy (N25.0) Active confirmed Renal osteodyst rophy (11427516) Problem Essential hypertension (I10) Active confirmed Essential hypertension (01537661) Problem Chronic kidney disease, stage 3a (N18.31) Active confirmed Chronic kidney disease stage 3A (disorder) (507711156) PLAN OF TREATMENT No Information
--- OUTSIDE RECORDS SUMMARY | 2024-06-02 08:35 | XMS_ITS ---
Author Organization [facility] Address [address] [facility] [address] [place] [address] Care Team Providers Care Supervisor Inspecting Name Role Phone Rojelio David Unavailable [phone] Encounters Encounter Location Date Provider Diagnosis [place] [facility] [address] [facility] [address] [place] [address] 03/23/2023 David Serrato PLAN OF TREATMENT No Information Progress Notes * ZEHRA ALVAREZOB:1935 (88 yo M)Acc No.[id number]:03/23/2023 Patient: RICK ALVAREZ Provider: MD JET, Justice.Thai.C.P, F.A.S.N. :1935 Age:87 Y Sex:Male Date:03/23/2023 Address:[address] [place] [address] Subjective: * Chief Complaints: Objective: Assessment: Plan: * Billing Information: * Visit Code: * Procedure Codes: * Sign off status: Pending * Provider: MD JET, Justice.Thai.C.P, F.A.S.N. Date: 03/23/2023
[2024-06-02 08:47] LABS: Hematocrit 38.6 % (42.0-52.0); Hemoglobin 12.2 g/dL (14.0-18.0); Mean Corpuscular HGB Conc 31.6 g/dl (32-36); Mean Corpuscular Hemoglobin 26.8 pg (26-34); Mean Corpuscular Volume 84.6 fl (80-100); Mean Platelet Volume 10.7 fl (7.4-10.4); Platelet Count Result 150 k/mm3 (150-375); Red Blood Count 4.56 M/mm3 (4.6-6.20); White Blood Count 6.4 K/mm3 (4.5-10.0)
[2024-06-02 08:51] LABS: Add Urine Microscopic? NO; Appearance Urine Clear (Clear); Bilirubin Urine Negative (Negative); Blood Urine Negative (Negative); Color Urine Yellow (Yellow); Glucose Urine UA 3+ mg/dL (Negative); Ketones Urine Negative (Negative); Leukocyte Esterase Ur Negative LEU/UL (Negative); Nitrate Urine Negative (Negative); Protein Urine Negative (Negative); Specific Grav Ur 1.011 (1.001-1.035); Urobilinogen Urine 0.2 mg/dL (<2.0); pH Urine 5.5 (5.0-9.0)
[2024-06-02 09:18] LABS: Albumin Level 4.7 g/dL (3.5-5.1); Anion Gap 10 mmol/L (4-12); Blood Urea Nitrogen 34 mg/dL (9-20); Carbon Dioxide 24 mmol/L (22-30); Chloride 105 mmol/L (98-107); Estimated Glomerular Filt Rate 36; Glucose 123 mg/dL (65-110); Magnesium 1.5 mg/dL (1.6-2.3); Potassium 4.5 mmol/L (3.4-5.0); Sodium 139 mmol/L (137-145)
[2024-06-02 10:10] LABS: Total Protein Urine Random 13 mg/dL; Ur Ttl Prot Creatinine Ratio 0.41 mg/mg (0-0.20)
[2024-06-02 10:20] LABS: Creatinine Urine 32.3 mg/dL
[2024-06-02 10:27] LABS: MALB Creatinine Ratio < 18.6 mg/g (0-30); Microalbumin Urine Random < 6.0 mg/L (0-16.7)
[2024-06-02 10:28] LABS: Parathyroid Intact 47.3 pg/mL (14.5-75.2)
[2024-06-02 11:22] LABS: Vitamin D 25 Hydroxy 45.5 ng/mL
[2024-06-04 14:49] LABS: Cystatin C 2.07 mg/L (0.52-1.13); eGFR 27 (> OR = 60)
== END 2024-06-02 08:21 | disposition home or self-care (01) ==
LOC: ANHLAB 08:20
PROVIDERS: PCP Internal Medicine; Visit Provider Internal Medicine Nephrology
DX: N18.32 Chronic kidney disease, stage 3b (principal); I25.84 Coronary atherosclerosis due to calcified coronary lesion; I44.2 Atrioventricular block, complete; E11.22 Type 2 diabetes mellitus with diabetic chronic kidney disease; E78.00 Pure hypercholesterolemia, unspecified; K21.9 Gastro-esophageal reflux disease without esophagitis
CPT/HCPCS: 36415; 80069; 81003; 82043; 82306; 82570; 82610; 83735; 83970; 84156; 85027

== ENCOUNTER 2024-10-06 08:04 | Outpatient (CLI) | payer MEDICARE, SELFPAY ==
--- OUTSIDE RECORDS SUMMARY | 2024-10-06 08:09 | XMS_ITS | Patient Health Record ---
Author Organization [facility] Office Address [address] [facility] [address] [place] [address] Support Name Relationship Address Phone RICK ALVAREZ Guarantor Unknown [phone] Reason For Referral No Information Medications Medication SIG (Take, Route, Frequency, Duration) Notes [...] 0.25 MCG 1 capsule Once a day ; Duration: 90 days Active Simvastatin 40 MG 1 tablet in the even ing Orally Once a day Active Problems Problem Type SNOMED Code ICD Code Onset Dates Problem Status W/U Status Risk Notes Problem Secondary hyperparathyroidism (09622697) Secondary hyperparathyroid ism, not elsewhere classified (E21.1) Active confirmed Problem Atrial fibrillation (48209769) Unspecified atrial fibrillation (I48.91) Active confirmed Problem Heart failure (83218763) Heart failure, unspecified (I50.9) Active confirmed Problem Renal osteodystrophy (68396322) Renal osteodystrophy (N25.0) Active confirmed Problem Essential hypertension (85621875) Essential hypertension (I10) Active confirmed Problem Chronic kidney disease stage 3A (disorder) (018884982) Chronic kidney disease, stage 3a (N18.31) Active confirmed Plan Of Treatment No Information
--- OUTSIDE RECORDS SUMMARY | 2024-10-06 08:09 | XMS_ITS | Clinical Summary ---
Author Organization [facility] Facility Address [address] [place] [address] Care Team Providers Care Maintenance Of Way Supervisor Name Role Phone Victor M Hill MD Primary Care Provider Unavail able Medications magnesium oxide (MAG-OX) 400 MG tablet [...] Sign Reading Time Taken Comments Blood Pressure 128/62 06/10/2024 12:48 PM CDT Pulse 68 06/10/2024 12:48 PM CDT Temperature 36.7 C (98 F) 06/10/2024 12:48 PM CDT Respiratory Rate 18 06/10/2024 12:48 PM CDT Oxygen Saturation 97% 06/10/2024 12:48 PM CDT Inhaled Oxygen Concentration - - Weight 71.4 kg (157 lb 4.8 oz) 06/10/2024 12:48 PM CDT Height - - Body Mass Index - - Plan of Treatment Upcoming Encounters Date Type Department Care Team (Late st Contact Info) Description 10/14/2024 1:45 PM CDT Office Visit [facility], [facility] [address] [place] [address] Chi Holland DO [address] [facility] [address] [facility] [address] Health Maintenance Due Date Last Done Comments Pneumococcal Vaccine: 50+ Years (2 of 2 - PPSV23, PCV20, or PCV21) 03/13/2016 01/17/2016 Diabetes: Ophthalmology Exam 03/06/2023 Diabetes: Pedal Pulse Checked 03/06/2023 Diabetes: Sensory Foot Exam 03/06/2023 Diabetes: Visual Foot Exam 03/06/2023 Diabetes: Hemoglobin A1C 04/14/2023 01/12/2023 Influenza Vaccine (#1) 2024 4, 12/19/2019, 01/10/2019, Additional history exists Hepatitis B Vaccine Aged Out No longe r eligible based on patient's age to complete this topic Insurance Advance Directives Documents on File Type Date Recorded 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
--- OUTSIDE RECORDS SUMMARY | 2024-10-06 08:09 | XMS_ITS | Continuity of Care Document ---
Author Organization [facility] Address [address] [facility] [address] [place] [address] Phone Care Team Providers Care Pilot Name Role Phone Og BONILLA MD, Alex Unavailable Unavailable Procedures Procedure Date AFTER CATARACT LASER SURGERY CATARACT SURG W/IOL, 1 STAGE CATARACT SURG W/IOL, 1 STAGE OFFICE/OUTPATIENT VISIT, [facility] DILATED EXAM RIGHT EYE DILATED EXAM LEFT EYE OPHTHALMIC BIOMETRY Advance Directives Directive Yes / No Effective Date File Name No Information Encounters Encounter Description Practice Location Reason(s) For Visit Diagnoses Date Provider Providers Copied on Encounter [facility], [address], [place], [place], [id number], tel:[phone] [address] [place] [address] No Information 6 Og Johnson. [address], [address], [place], [place], [id number] , [place]. tel:[phone] Referring Provider: Alex So, [address], [place], [address] . tel:[phone] Op[facility], [address], [place], [place], [address], tel:[phone] [address] [place] [address] No Information 5 Og Johnson. [address], [address], [place], [place], [address] , [place]. tel:[phone] Referring Provider: Alex So, [address], [place], [address] . tel:[phone] [facility], [address] [place] [address], [id number], tel:[phone] [address] [facility] No Information 5 Og Johnson. [address], [address], [place], [place], [address] , . [phone] Referring Provider: Alex Foley MD P, [address], [place], [address] . tel:[phone] OFFICE/OUTPA TIENT VISIT, [facility], [address] [place] [address], [place], [place], [address], tel:[phone] [facility] No Information 5 Og Johnson. [address], [place], [place], [address] , [place]. [phone] Referring Provider: Alex Foley MD P, [address], [place], [address] . tel:[phone] Family History Family Member Type Diagnosis Age At Onset No Information Payers Payer name Insurance type Covered green party ID Authoriza tion(s) Medicare Complete Advantage AARP CI [id number] Social History Type Description Quantity Date Captured [...]
[2024-10-06 08:51] LABS: Add Urine Microscopic? NO; Appearance Urine Clear (Clear); Glucose Urine UA 3+ mg/dL (Negative); Hematocrit 35.7 % (42.0-52.0); Hemoglobin 11.2 g/dL (14.0-18.0); Immature Platelet Fraction Pct 4.6 % (0.9-11.2); Leukocyte Esterase Ur Negative LEU/UL (Negative); Mean Corpuscular HGB Conc 31.4 g/dl (32-36); Mean Corpuscular Hemoglobin 27.6 pg (26-34); Mean Corpuscular Volume 87.9 fl (80-100); Nitrate Urine Negative (Negative); Platelet Count Result 139 k/mm3 (150-375); Red Blood Count 4.06 M/mm3 (4.6-6.20); Specific Grav Ur 1.020 (1.001-1.035); White Blood Count 6.0 K/mm3 (4.5-10.0)
[2024-10-06 09:11] LABS: Total Protein Urine Random 13 mg/dL; Ur Ttl Prot Creatinine Ratio 0.22 mg/mg (0-0.20)
[2024-10-06 09:16] LABS: MALB Creatinine Ratio 11.5 mg/g (0-30)
[2024-10-06 09:25] LABS: Hemoglobin A1C 7.8 % (<5.7)
[2024-10-06 09:34] LABS: Parathyroid Intact 78.9 pg/mL (14.5-75.2)
[2024-10-06 09:38] LABS: Albumin Level 4.2 g/dL (3.5-5.1); Anion Gap 6 mmol/L (4-12); Blood Urea Nitrogen 26 mg/dL (9-20); Calcium 9.0 mg/dL (8.4-10.2); Carbon Dioxide 26 mmol/L (22-30); Chloride 105 mmol/L (98-107); Estimated Glomerular Filt Rate 43; Glucose 50 mg/dL (65-110); Magnesium 1.3 mg/dL (1.6-2.3); Potassium 4.2 mmol/L (3.4-5.0); Sodium 137 mmol/L (137-145)
[2024-10-07 07:08] LABS: eGFR 34 (>59)
== END 2024-10-06 08:05 | disposition home or self-care (01) ==
PROVIDERS: PCP Internal Medicine; Visit Provider Internal Medicine Nephrology
DX: I12.9 Hypertensive chronic kidney disease with stage 1 through stage 4 chronic kidney disease, or unspecified chronic kidney disease (principal); E11.22 Type 2 diabetes mellitus with diabetic chronic kidney disease; N18.32 Chronic kidney disease, stage 3b; I25.84 Coronary atherosclerosis due to calcified coronary lesion; I48.0 Paroxysmal atrial fibrillation; I44.2 Atrioventricular block, complete; E78.00 Pure hypercholesterolemia, unspecified; K21.9 Gastro-esophageal reflux disease without esophagitis
CPT/HCPCS: 36415; 80069; 81003; 82043; 82306; 82570; 82610; 83036; 83735; 83970; 84156; 85027; 85055

== ENCOUNTER 2024-12-02 08:13 | Outpatient (CLI) | payer MEDICARE, SELFPAY ==
--- OUTSIDE RECORDS SUMMARY | 2015-08-20 03:35 | XMS_ITS | Continuity of Care Document ---
Author Organization [facility] Address [address] [facility] [address] [address] [place] [address] Phone Care Team Providers Care Development Eng Name Role Phone Og BONILLA MD, Alex Unavailable Unavailable Procedures Procedure Date AFTER CATARACT LASER SURGERY CATARACT SURG W/IOL, 1 STAGE CATARACT SURG W/IOL, 1 STAGE OFFICE/OUTPATIENT VISIT, [facility] DILATED EXAM RIGHT EYE DILATED EXAM LEFT EYE OPHTHALMIC BIOMETRY Advance Directives Directive Yes / No Effective Date File Name No Information Encounters Encounter Description Practice Location Reason(s) For Visit Diagnoses Date Provider Providers Copied on Encounter Ophthalmology [facility], [address], [place], [place], [id number], tel:[phone] [address] [place] [address] No Information 6 Og Johnson. [address], [address], [place], [place], [id number] , [place]. tel:[phone] Referring Provider: Alex So, [address], [place], [address] . tel:[phone] Ophthalmology [facility], [address], [place], [place], [address], tel:[phone] [address] [place] [address] No Information 5 Og Johnson. [address], [address], [place], [place], [address] , [place]. tel:[phone] Referring Provider: Alex So, [address], [place], [address] . tel:[phone] [facility], [address] [place] [address], [id number], tel:[phone] [address] [facility] No Information 5 Og Johnson. [address], [address], [place], [place], [address] , . [phone] Referring Provider: Alex Foley MD P, [address], [place], [address] . tel:[phone] OFFICE/OUTPA TIENT VISIT, [facility], [address] [place] [address], [place], [place], [id number], tel:[phone] [facility] No Information 5 Og Johnson. [address], [address], [place], [place], [address] , [place]. [phone] Referring Provider: Alex Foley MD P, [address], [place], [address] . tel:[phone] Family History Family Member Type Diagnosis Age At Onset No Information Payers Payer name Insurance type Covered republican ID Authoriza tion(s) Medicare Complete Advantage AARP CI [id number] Social History Type Description Quantity Date Captured Comments Sex Male Smoking Status No Information Chief Complaint And Reason For Visit No Information Reason For Referral Reason For Referral No Information History Of Present Illness Encounter Date Complaint History Of Prese nt Illness No Information Functional Status Date Functional Assessmen t No Information Instructions Date Instruction Additional Infor mation No Information Assessments Type Assessment Date No Information Patient Care Teams Name Effective Dates (start - stop) Status Members No Information
--- OUTSIDE RECORDS SUMMARY | 2024-12-02 08:31 | XMS_ITS | Clinical Summary ---
Author Organization [facility] Facility Address [address] [address] Care Team Providers Care Aerospace Medicine Physician Name Role Phone Victor M Hill MD Primary Care Provider [phone] Medications magnesium oxide (MAG-OX) 400 MG tablet Take 1 tablet (400 mg total) by mouth in the morning and 1 tablet (400 mg total) in the evening. 180 tablet 1 07/31/2023 Active amLODIPine (NORVASC) 5 MG tablet Take 1 tablet (5 mg total) by mouth every night 90 tablet 1 02/05/2024 Active glipiZIDE (GLUCOTROL XL) 5 MG 24 hr tablet Take 1 tablet (5 mg total) by mouth 1 (one) time each day 90 tablet 1 10/16/2024 Active SITagliptin (JANUVIA) 50 MG tablet Take 1 tablet (50 mg total) by mouth 1 (one) time each day in the morning 90 tablet 1 10/16/2024 Active nebivolol (BYSTOLIC) 5 MG tablet Take 1 tablet (5 mg total) by mouth every night 30 tablet 3 10/16/2024 Active Encounters Date Type Department Care Team Description 10/16/2024 Refill [facility], [facility] [address] [facility] 1 [place] [address] Judie Garcia CMA 10/14/2024 1:45 PM CDT Office Visit [facility], [facility] [address] [place] [address] [address] [place] [address] Chi Holland DO Stage 3b chronic kidney disease (HCC) (Primary Dx); Coronary artery disease due to calcified coronary lesion; Paroxysmal atrial fibrillation (HCC); Complete atrioventricular block (HCC); Hypertensive chronic kidney disease; Type 2 diabetes mellitus with diabetic chronic kidney disease (HCC); Pure hypercholesterolemia, not otherwise specified; Gastroesophageal reflux disease 10/13/2024 Documentation Only [facility], [address] [address] Chi Holland, 10/09/2024 Refill [facility], [address] [address] [place], Judie, [facility] 10/08/2024 Refill [facility], [address] [address] [place], Judie, [facility] 10/07/2024 Documentation Only [facility], [address] [address] Chi Holland DO 10/06/2024 Documentation Only [facility], [address] [address] Chi Holland DO 10/06/2024 Office Communication [facility], [address] [address] Chi Holland DO from Last 3 Months Social History Tobacco Use Types Packs/Day Years Used Date Smoking Tobacco: Never Assessed Sex and Gender Information Value Date Recorded Sex Assigned at Not on file Legal Sex Male 11:35 AM EDT Gender Identity Not on file Sexual Orientation Not on file Last Filed Vital Signs Vital Sign Reading Time Taken Comments Blood Pressure 136/84 10/14/2024 1:40 PM CDT Pulse 80 10/14/2024 1:40 PM CDT Temperature 36.7 C (98 F) 06/10/2024 12:48 PM CDT Respiratory Rate 18 06/10/2024 12:48 PM CDT Oxygen Saturation 96% 10/14/2024 1:40 PM CDT Inhaled Oxygen Concentration - - Weight 70.8 kg (156 lb) 10/14/2024 1:40 PM CDT Height - - Body Mass Index - - Plan of Treatment Upcoming Encounters Date Type Department Care Team (Juan st Contact Info) Description 12/09/2024 3:15 PM CDT Office Visit [facility], [facility] [address] [facility] [address] [place] [address] Chi Holland DO [address] [facility] 1 [place] [address] Health Maintenance Due Date Last Done Comments [...] patient's age to complete this topic Insurance [facility] Medicare Advance Directives Documents on File Type Date Recorded Patient Master [employer] Expl anation Advance Care Planning 03/09/2023 1:22 PM Care Teams Aerospace Medicine Physician Relationship Specialty Start Date End Date Victor M Hill MD [facility] [place] [address] PCP - General Internal Medicine 12/25/22
--- OUTSIDE RECORDS SUMMARY | 2024-12-02 08:31 | XMS_ITS | Patient Health Record ---
Author Organization [facility] Office Address [address] [facility] [address] [place] [address] Support Name Relationship Address Phone RICK ALVAREZ Guarantor Unknown [phone] Reason For Referral No Information Medications Medication [...] W/U Status Risk Notes Problem Secondary hyperparathyroidism (11770881) Secondary hyperparathyroid ism, not elsewhere classified (E21.1) Active confirmed Problem Atrial fibrillation (69697111) Unspecified atrial fibrillation (I48.91) Active confirmed Problem Heart failure (31902582) Heart failure, unspecified (I50.9) Active confirmed Problem Renal osteodystrophy (45715865) Renal osteodystrophy (N25.0) Active confirmed Problem Essential hypertension (13658170) Essential hypertension (I10) Active confirmed Problem Chronic kidney disease stage 3A (disorder) (273740247) Chronic kidney disease, stage 3a (N18.31) Active confirmed Plan Of Treatment No Information
[2024-12-02 09:08] LABS: Hemoglobin A1C 7.5 % (<5.7)
[2024-12-02 09:17] LABS: Albumin Level 4.1 g/dL (3.5-5.1); Anion Gap 11 mmol/L (4-12); Blood Urea Nitrogen 30 mg/dL (9-20); Calcium 8.7 mg/dL (8.4-10.2); Carbon Dioxide 24 mmol/L (22-30); Chloride 106 mmol/L (98-107); Estimated Glomerular Filt Rate 37; Glucose 129 mg/dL (65-110); Magnesium 1.2 mg/dL (1.6-2.3); Potassium 4.1 mmol/L (3.4-5.0); Sodium 141 mmol/L (137-145)
[2024-12-03 12:08] LABS: eGFR 36 (>59)
== END 2024-12-02 08:14 | disposition home or self-care (01) ==
LOC: ANHLAB 08:18
PROVIDERS: PCP Internal Medicine; Visit Provider Internal Medicine Nephrology
DX: E11.22 Type 2 diabetes mellitus with diabetic chronic kidney disease (principal); I12.9 Hypertensive chronic kidney disease with stage 1 through stage 4 chronic kidney disease, or unspecified chronic kidney disease; N18.32 Chronic kidney disease, stage 3b; I25.84 Coronary atherosclerosis due to calcified coronary lesion; I48.0 Paroxysmal atrial fibrillation; I44.2 Atrioventricular block, complete; E78.00 Pure hypercholesterolemia, unspecified; K21.9 Gastro-esophageal reflux disease without esophagitis
CPT/HCPCS: 36415; 80069; 82610; 83036; 83735